=== PATIENT | male | born 1970 | race African-American/Black ===

== ENCOUNTER 2021-12-19 12:32 | Outpatient (RCR) | payer BC, SELFPAY ==
[2021-12-19 13:02] VITALS: BP 120/73; PULSE 101; RESP 16; TEMP 36.4; BMI 21.4
--- NOTE | 2021-12-19 13:19 | WC ---
PT WILL BRING MED LIST TO NEXT VISIT
--- NOTE | 2021-12-19 15:38 | PCM.WC.HP ---
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 He noticed a small mass in August while on vacation. It started to grow rapidly, especially after the biopsy by ENT at the end of September. He is currently receiving Chemotherapy. He has one more treatment after what he is currently receiving. He states he will then start radiation. He was referred to the wound center for drainage management. He and his state that the drainage has improved since starting the Chemo. They are currently not having any issues with bleeding. Patient states he has been eating well and his weight is stable. He states he will receive a feeding tube before he starts radiation therapy. Today he denies fever, chills, nausea or vomiting. His is a good support system. Progress of Wound: Right base neck mass that is dry with dry necrotic tissue. There are several areas of pink tissue that currently dry and not draining or bleeding. There is moisture around the base of the mass. [facility] Medical History Anxiety Migraine Osteoarthritis Primary cancer of supraglottis Seasonal allergies Sleep apnea Home Medications cetirizine 10 mg tablet 10 mg PO DAILY PRN 11/16/21 [History Last Taken Unknown] morphine 15 mg tablet,extended release tablet PO 12/08/21 [History Last Taken Unknown] Allergy/AdvReac Type Severity Reaction Status Date / Time No Known Allergies Allergy Verified 12/19/21 13:19 Family History Aunt Cancer unknown type Surgical History Hx of knee surgery Social History household members: spouse and children number of children: 2 current occupational status: employed Smoking Status: Current every day smoker tobacco type: cigars alcohol intake: current Alcohol type: beer ROS Constitutional Constitutional: Reports systems reviewed and no addt'l complaints, except as documented, fatigue and malaise; Denies chills or fever(s) Eyes Eyes: Reports requires corrective lenses ENT HEENT: Reports as per HPI, sore throat and other Details: swallowing without difficulty, able to eat without issues. ; Denies throat swelling Cardiovascular Cardiovascular: Reports fatigue; Denies chest pain or dyspnea Respiratory/Chest Respiratory/Chest: Denies cough or dyspnea Gastrointestinal Gastrointestinal: Denies chewing difficulty, dysphagia, nausea or vomiting Musculoskeletal Musculoskeletal: Reports none Integumentary Integumentary: Reports as per HPI Neurologic Neurologic: Reports systems reviewed and no addt'l complaints, except as documented Psychiatric Psychiatric: Reports anxiety Endocrine Endocrinology: Reports none Vital Signs Vital Signs Vital Signs: 12/19/21 13:02 Temperature 97.6 F L Temperature Source Temporal Pulse Rate 101 H Respiratory Rate 16 Blood Pressure 120/73 Blood Pressure Mean 88 Blood Pressure Source Monitor Blood Pressure Position Sitting Blood Pressure Location Left Arm Oxygen Delivery Method Room Air Weight Weight: 158 lb Body Mass Index (BMI) 21.4 Physical Exam Const alert, oriented x3 and average body habitus General Appearance: cooperative HEENT normocephalic Eyes PERRL Neck Neck Narrative: Right neck base mass with thick, necrotic tissue but several areas of soft, pink tissue. Drainage coming from the base of the mass. Area is extremely tender to light palpation. Resp normal respiratory effort and normal air movement Auscultation: clear to auscultation bilaterally Cardio regular rate and regular rhythm GI soft to palpation and non-tender Extremity full ROM and normal capillary refill Skin Skin Narrative: see HEENT for right neck mass description Neuro oriented x3 Psych mental status grossly normal, thought process normal and cooperative Debridement Note Debridement Note Wound debrided: neck mass Laterality: Right Type of Debridement: Selective debridement Anesthesia Used: 4% Lidocaine Solution Percentage of wound debrided: 80 Instrument Used: 5mm curette Tissue Removed: Devitalized tissue and slough Amount of bleeding with debridement: None Patient tolerated procedure: Patient tolerated procedure well Debridement Free Text: Selective debridement to clean around the edges and remove loose, sloughing tissue, 80% of mass gently debrided. No aggressive debridement performed because of pain and not wanting to have the mass start bleeding. Post-Debridement Measurements and Additional Note: Post-Debridement Measurements/Treatment - Nurse 1 - General Ulcer Assessment Start: 12/19/21 13:00 Freq: Status: Active Protocol: BRIT Activity Type Activity Date Activity User E-sign Co-sign Detail Recorded Client Recorded Date Recorded By Document 12/19/21 13:02 [facility] [id number] 12/19/21 13:15 [facility] 12/19/21 13:02 - Today's Visit Information Type of service Initial Visit Arrival Mode Ambulatory Transfer Assistance None Accompanied by Patient Identification Verified (Name & Yes ) Patient Requires Transmission-Based No Precautions Height and Weight Height 6 ft Weight 158 lb Weight in Pounds 158.0 lbs Body Mass Index (BMI) 21.4 BMI Classification Normal BSA - Ned 1.93 Vital Signs Temperature (97.8 F-99.1 F) 97.6 F L Temperature Source Temporal Pulse Rate (60-100) 101 H Pulse Location Monitor Respiratory Rate (12-18) 16 Respiratory rate source Observation Oxygen Delivery Method Room Air Blood Pressure (90/60-120/80) 120/73 Blood Pressure Mean 88 Source Monitor Position Sitting Blood Pressure Location Left Arm History Since Last Visit- (Skip if this is Patient's initial visit) Left Footwear Regular Shoe Right Footwear Regular Shoe Pain Scale: 0-10 Numeric Is Patient Pain Free? Yes Communication Assessment Preferred language South African Applications Programmer Analyst Required No Able to Read Yes Able to Write Yes Communication Tools None Right Hearing Abillity Normal Left Hearing Abillity Normal Visual Assistive Devices Glasses Teaching Assessment Preferences Verbal,Written, Audio/Visual, Demonstration Barriers to Learning None Readiness To Learn Excellent Willingness to Engage in Self Management High Activies Readiness to Engage in Self Management High Activities Anxiety Level Calm Cooperation Cooperative Perception Coherent Interest in Health Problem Asks Questions Education Importance Acknowledges Need Does Patient Smoke tobacco or other No substances Smoking Status Current every day smoker Is Patient Diabetic No Functional Assessment Recent Decline in Ability to Perform Denies Any Declines Culture/Mormonism/Planner Intern Cultural/Mormonism Needs that may affect No Treatment Plan Teaching: Wound Center *Welcome to the Wound Center -Person Taught Patient,Family -Teaching Method Discussion -Response to teaching Verbalize understanding Welcome to the Wound Care Center South African - Nurse 1 - General Ulcer Measurement Start: 12/19/21 13:00 Freq: Status: Active Protocol: Activity Type Activity Date Activity User E-sign Co-sign Detail Recorded Client Recorded Date Recorded By Document 12/19/21 13:02 [facility] [id number] 12/19/21 13:15 [facility] 12/19/21 13:02 Wound Center Nurse 1 #1- R NECK TUMOR -Combined with other wound No -Current Size (cm) - Length 7.7 -Current Size (cm) - Width 9.8 -Current Size (cm) - Depth 0.1 -Total Square Cm 75.46 -Date of Last Picture (Recall this 12/19/21 field) -Photo Taken Yes -Epithelialization None Present -Tunneling No -Undermining/Tunneling No -Circular Undermining No -Exudate Amt Small -Exudate Type Serosanguineous -Wound Margin Distinct, Outline Attached -Granulation Amt None Present (0 %) -Slough/Fibrin Yes -Necrosis Amt Large (67-100%) -Necrotic Tissue Type Eschar -Texture (Chery-wound Skin Appearance) Assessed, Scarring -Moisture (Chery-wound Skin Appearance) Assessed,Dry/ Scaly -Color (Chery-wound Skin Appearance) Assessed -Temperature (Chery-wound Skin No Abnormality Appearance) (Pt Warm) -Tenderness on Palpation (Chery-wound No Skin Appearance) -Ulcer Cleansing Soap and Water -Foul Odor after Cleansing No -Anesthetic Used 4% Lidocaine Solution - Nurse 2 - General Ulcer CM Notes Start: 12/19/21 13:00 Freq: Status: Active Protocol: Activity Type Activity Date Activity User E-sign Co-sign Detail Recorded Client Recorded Date Recorded By Document 12/19/21 13:36 [id number] 12/19/21 13:43 12/19/21 13:36 Wound Center Nurse 2 -Time 13:40 -Correct Patient Yes -Correct Side, Site, Position Yes -Correct Procedure Yes -Procedure Performed Yes -Type of Procedure Debridement -Clinical Debridement Epidermis / Dermis -Tissue Removed Epidermis, Dermis -Post Debridement (cm) - Length 9 -Post Debridement (cm) - Width 11 -Post Debridement (cm) - Depth 0.1 -Total Square (Post) (cm) 99 -Area of Debridement (cm) - Length 9 -Area of Debridement (cm) - Width 11 -Total Square (Area) (cm) 99 -Tunneling No -Undermining/Tunneling No -Circular Undermining No -Wound/Ulcer Outcome Not Healed -Ulcer Cleansing Rinsed/ Irrigated with Saline -Foul Odor after Cleansing No -Bioengineered Tissue No -Bleeding Controlled with Pressure -Treatment Response Procedure Tolerated Well -Offloading No -Debridement - Open, 1st 20sq cm Yes -Debridement, Open, ea addt'l 20sq cm 4 or part thereof Pain Scale: 0-10 Numeric Is Patient Pain Free? Yes WC - Nurse 3 - General Ulcer D/C NN Start: 12/19/21 13:00 Freq: Status: Active Protocol: Activity Type Activity Date Activity User E-sign Co-sign Detail Recorded Client Recorded Date Recorded By Document 12/19/21 13:58 DL [id number] 12/19/21 13:59 DL 12/19/21 13:58 Wound Care Nurse 3 #1- R NECK TUMOR -Foul Odor after Cleansing No -Primary Dressing Applied Mepilex Border -Mepilex Border 1 Treatment Response Procedure Tolerated Well Pain Scale: 0-10 Numeric Is Patient Pain Free? Yes - Visit Discharge Discharge Condition Stable Ambulatory Status Ambulatory Transportation Private Auto Charges/Coding Addendum Addendum: Selective debridement 33986 and 28287 x 4 Visit Charges Office Visits / Consults: 37022 OV L3 Est (25 modifer) Assessment/Plan Assessment/Plan (1) Primary cancer of supraglottis: CODE(S): C32.1 - Malignant neoplasm of supraglottis (2) Mass of right side of neck: CODE(S): R22.1 - Localized swelling, mass and lump, neck PLAN: Plan Patient evaluated at the wound center. A gentle, selective debridement was performed. Drainage control and comfort are our primary goals. Will order [place] SAP dressing to be changed daily or every other day if drainage decreases. May wash the area with soap and water and dry well, especially around the edges/creases at the time of the dressing change. He is currently receiving Chemo. Encouraged good nutrition, with increased protein intake. Follow up 3 weeks. Call or come in sooner if have any concerns.
== END 2021-12-20 23:59 | disposition home or self-care (01) ==
LOC: WC 12:32
PROVIDERS: Visit Provider Nurse Practitioner Family
DX: C32.1 Malignant neoplasm of supraglottis (principal); R22.1 Localized swelling, mass and lump, neck; F17.290 Nicotine dependence, other tobacco product, uncomplicated; G47.30 Sleep apnea, unspecified; M19.90 Unspecified osteoarthritis, unspecified site
CPT/HCPCS: 97597; 97598; 99213; G0463

== ENCOUNTER 2022-01-01 12:23 | Day surgery (SDC) | payer BC, MEDICAID, SELFPAY ==
--- NOTE | 2021-12-28 12:18 | SUR.PREOP ---
nutrition therapy called and they will see pt on saturday when he comes in after the procedure is done. the pt's will be with him .
[2022-01-01] VITALS (7 sets, daily range): BP systolic 97–109; BP diastolic 62–72; PULSE 87–94; RESP 16; TEMP 36.6–37.4; O2SAT 100; BMI 20.6
--- NOTE | 2022-01-01 13:09 | PCM.HP.BLA ---
History and Physical Date of Admission: 01/01/22 Date of Service:? 12/08/21 MR#: [id number] Acct: [id number] Name:CHRISTOPHE MARTÍNEZ Rep #: [id number] : 1970 Provider: Dr. Gracy Lowry MD Age/Sex:? 51/M ? Location: [facility] Status: Signed Intake Vital Signs ? 12/08/2209:06 Height 6 ft Weight: 160 lb 4 oz BMI 21.7 BP 135/77 H Blood Pressure Location Rt brachial Position Sitting Respiration 18 Pulse 108 H Pulse Source NIBP Temp 97.8 F Temp Source Temporal Pulse Oximetry (%) 96 Oxygen Delivery Method room air Intake Visit Reasons:?PEG PLACEMENT Chief Complaint: discuss PEG Senior Rd Engineer Required: No Is patient in pain?: No Allergies No Known Allergies Allergy (Verified 12/08/21 09:53) Medications cetirizine 10 mg tablet 10 mg PO DAILY PRN 11/16/21 [History Confirmed 12/08/21] morphine 15 mg tablet,extended release tablet PO 12/08/21 [History Confirmed 12/08/21] PFSH Medical History?(Updated 12/08/21 @ 10:[address] Gracy Lowry MD) Anxiety Migraine Osteoarthritis Seasonal allergies Sleep apnea Surgical History? Hx of knee surgery Family History? Aunt?? Cancer ?? ? unknown type Social History?(Updated 11/17/21 @ 09:01 by Manda Argueta) household members:? spouse and children number of children:? 2 current occupational status:? employed Smoking Status:? Current some day smoker tobacco type: cigars alcohol intake:? current Alcohol type: beer HPI HPI HPI: CHRISTOPHE GARZA, is a 51 M who presents to the office today for session of PEG placement.? Patient's currently on chemotherapy for his primary cancer of the supra epiglottis.? 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 Schwarz's office he was in the 160s as well.? Patient states that when he gets weighed in [place] it has been like 130 or 140s-seems like scale is not correct.? Patient states he is able to eat and swallow without difficulty and has a normal appetite currently.? Patient referred not to get a PEG tube unless he needs it. ROS General General: Yes fatigue HEENT HEENT: Yes swollen glands; No difficulty swallowing Skin Skin: No rash or changing moles Cardio Cardiovascular: No chest pain Psych Psychiatric: Yes anxiety; No depression Resp Respiratory: No shortness of breath, Yes sleep apnea, No cough, No COPD, No asthma, No emphysema and No wheezing Gastro Gastrointestinal: No abdominal pain, No nausea or vomiting, Yes diarrhea, Yes constipation, No blood in stool, Yes acid reflux, No hemorrhoids, No ulcers, No gallbladder problem and No black,tarry stools Neuro Neurologic: No numbness and No tingling Exam Const General: cooperative, healthy appearing and no acute distress HENMT Head: normal to inspection Neck Other: Large right neck mass dressed Resp Effort & Inspection: normal respiratory effort Cardio Rate: regular rate GI Inspection: non-distended Palpation: soft, no guarding and nontender Skin General: no rashes or lesions noted Neuro General: patient oriented x3 Extrem General: no clubbing, cyanosis or edema Psych Affect: normal affect Assessment and Plan Assessment and Plan (1) Primary cancer of supraglottis: ?Status:?Acute (2) Malnutrition: ?Status:?Acute Plan Did discuss with patient that typically once she start radiation a PEG is necessary for a small amount of time to keep adequate nutrition as it can be very sore/painful to swallow.? Patient was agreeable to have the PEG placed.? Patient would prefer to to wait to the closer to when radiation would start.? Discussed doing it after his next cycle of chemotherapy 2 weeks after his dose the week of January 01.? Patient was agreeable with plan.? Patient does have some dental work that needs to be done prior to starting any radiation. I have discussed the above with the patient. I have offered the patient esophagogastroduodenoscopy with placement of percutaneous gastrostomy tube. I have explained the risks/benefits of the procedure and described the procedure.? I have discussed the risks with the patient, including but not limited to:? infection, bleeding, perforation of the GI tract requiring emergency surgery, inability to complete the procedure, injury to any internal organs, complications of anesthesia, etc. - the patient understands and agrees to proceed. I have answered all the patient's questions to the patient's satisfaction and the patient has no further questions. Gracy Lowry M.D. Pager: [phone] [facility] [address] [place] [address], [address] [place] [address] Office: [phone] Coding Level of Care Code Off vis,new,level 3 Diagnoses Primary cancer of supraglottis? C32.1 Malnutrition? E46 12/08/21 1033 <Electronically signed by Gracy Lowry MD> Date Gracy Lowry MD
[2022-01-01] MEDS: Lactated Ringers 1,000 ML 15 ML IV (13:10)
--- NOTE | 2022-01-01 13:30 | IMM_PTH ---
PATIENT: CHRISTOPHE GARZA LOC: [facility] U#:[id number] AGE/SX: 51/M ROOM: RE01/01/[address]: Dr. Gracy Lowry MD : 1970 BED: DIS: 01/01/2022 SPEC #: [id number] RECD: 01/02/22 09:42 STATUS: BELKIS REBernadette #: [id number] ENA: 01/01/22 13:[address]: Gracy Lowry DEPT: IMMUNOHISTOCHEMISTRY RECD BY: Alina Haskins ENTERED: 01/02/22 09:43 SP TYPE: IMMUNO OT DR: Tara Primary Care Phys Tissues: Stomach, NOS Procedures: H Pylori (initial) PHYSICIAN & INSTITUTION [place] [id number] SPECIMEN INFORMATION: Tissue Source: Antrum biopsy Clinical Info: Cancer of supraglottis, malnutrition Specimen Number: [id number] CPT code: 69208 METHODOLOGY: Deparaffinized sections of prefer/formalin-fixed tissue or PAP/DQ stained slides are incubated with monoclonal/polyclonal antibodies/oligonucleotide probes. Localization is made via biotin free immunoperoxidase method. Appropriate controls are performed and reacted as expected. Results on target cell population are indicated in the following table: RESULTS: ANTIBODY / CLONE RESULT H Pylori (polyclonal) negative These tests were developed and their performance characteristics determined by [facility]. They may not have been cleared or approved by the U.S. Food and Drug Administration. The FDA has determined that such clearance or approval is not necessary. The above immunohistochemical/dualISH markers are ordered and reviewed by the Pathologist. INTERPRETATION: Antrum, biopsy: Negative for Helicobacter pylori organisms. SJ:ange 01/03/2022
--- NOTE | 2022-01-01 13:30 | EGD_PTH ---
PATIENT: CHRISTOPHE GARZA LOC: [facility] U#:[id number] AGE/SX: 51/M ROOM: RE01/01/[address]: Dr. Gracy Lowry MD : 1970 BED: DIS: 01/01/2022 SPEC #: [id number] RECD: 01/01/22 14:27 STATUS: BELKIS THONY #: [id number] ENA: 01/01/22 13:[address]: Gracy Lowry DEPT: SURGICAL PATHOLOGY RECD BY: Fatou Dangelo ENTERED: 01/02/22 07:46 SP TYPE: EGD BIOPSY OT DR: No Primary Care Phys Tissues: Gastric mucous membrane Procedures: Surgery Specimen Level IV HEADER OPERATION: E[place] ([facility]) with PEG tube placement PRE-OP DIAGNOSIS: Cancer of supraglottis, malnutrition TISSUE SUBMITTED: Antrum biopsy for histo and H. pylori MICROSCOPIC DIAGNOSIS Antrum, biopsy: Mild gastritis. See microscopic description and comment. SJ:ange 01/03/2022 COMMENT The results of immunohistochemistry for Helicobacter pylori will be reported separately ([id number]). MICROSCOPIC DESCRIPTION Slides are reviewed. The specimen shows fragments of gastric mucosa with chronic inflammatory cell infiltrates in the lamina propria consisting of lymphocytes and plasma cells, consistent with mild chronic gastritis. GROSS DESCRIPTION Received in fixative is one container labeled with the patient's name and designated antrum biopsy. The specimen consists of one irregular fragment of light tapia soft tissue that measures 0.3 x 0.3 x 0.1 cm. The specimen is totally submitted in one cassette. / MELQUIADES:ange 01/02/2022 TC:3 CPT: 05077
[2022-01-01] MEDS: Cefazolin 2 GM in 0.9% Normal Saline 100 ML IV (13:52)
--- NOTE | 2022-01-01 14:19 | OP.EGD_ITS ---
Patient Name: Troy Grullon Procedure Date: 01/01/2022 1:35 PM Date of : 1970 Age: 51 Procedure: Upper GI endoscopy Indications: Place PEG-J due to feeding difficulties secondary to oropharyngeal tumor Providers: Gracy Lowry MD Referring MD: Gracy Lowry MD Medicines: Monitored Anesthesia Care Patient Profile: This is a 51 year old male. Complications: No immediate complications. Procedure: Pre-Anesthesia Assessment: - Prior to the procedure, a History and Physical was performed, and patient medications and allergies were reviewed. The patient's tolerance of previous anesthesia was also reviewed. The risks and benefits of the procedure and the sedation options and risks were discussed with the patient. All questions were answered, and informed consent was obtained. Prior Anticoagulants: The patient has taken no previous anticoagulant or antiplatelet agents. ASA Grade Assessment: Per anesthesia. After reviewing the risks and benefits, the patient was deemed in satisfactory condition to undergo the procedure. After obtaining informed consent, the endoscope was passed under direct vision. Throughout the procedure, the patient's blood pressure, pulse, and oxygen saturations were monitored continuously. The Endoscope was introduced through the mouth, and advanced to the second part of duodenum. The upper GI endoscopy was accomplished without difficulty. The patient tolerated the procedure well. Scope In: 1:56:46 PM Scope Out: 2:10:10 PM Total Procedure Duration Time 0 hours 13 minutes 24 seconds Findings: The Z-line was variable and was found 40 cm from the incisors. The examined duodenum was normal. Mildly erythematous mucosa without bleeding was found in the gastric antrum. Biopsies were taken with a cold forceps for histology. Biopsies were taken with a cold forceps for Helicobacter pylori cultures. The cardia and gastric fundus were normal on retroflexion. The patient was placed in the supine position for PEG placement. The stomach was insufflated to appose gastric and abdominal duffy. A site was located in the body of the stomach with excellent transillumination for placement. The abdominal wall was marked and prepped in a sterile manner. The area was anesthetized with 5 mL of 1% lidocaine. The trocar needle was introduced through the abdominal wall and into the stomach under direct endoscopic view. A snare was introduced through the endoscope and opened in the gastric lumen. The guide wire was passed through the trocar and into the open snare. The snare was closed around the guide wire. The endoscope and snare were removed, pulling the wire out through the mouth. A skin incision was made at the site of needle insertion. The externally removable 20 Fr EndoVive Safety gastrostomy tube was lubricated. The G-tube was tied to the guide wire and pulled through the mouth and into the stomach. The trocar needle was removed, and the gastrostomy tube was pulled out from the stomach through the skin. The external bumper was attached to the gastrostomy tube, and the tube was cut to remove the guide wire. The final position of the gastrostomy tube was confirmed by relook endoscopy, and skin marking noted to be 3.5 cm at the external bumper. The final tension and compression of the abdominal wall by the PEG tube and external bumper were checked and revealed that the bumper was loose and lightly touching the skin. The feeding tube was capped, and the tube site cleaned and dressed. Impression: - Z-line variable, 40 cm from the incisors. - Normal examined duodenum. - Erythematous mucosa in the antrum. Biopsied. - An externally removable PEG placement was successfully completed. Recommendation: - Discharge patient to home. - Resume previous diet. - Continue present medications. - Please follow the post-PEG recommendations including: change dressing once per day, flush PEG daily with 60 ml water and clean site with soap and water daily and dry thoroughly. Procedure Code(s): --- Professional --- 12774, PT, Esophagogastroduodenoscopy, flexible, transoral; with directed placement of percutaneous gastrostomy tube 15195, Esophagogastroduodenoscopy, flexible, transoral; with biopsy, single or multiple Diagnosis Code(s): --- Professional --- K22.8, Other specified diseases of esophagus K31.89, Other diseases of stomach and duodenum D37.05, Neoplasm of uncertain behavior of pharynx R63.3, Feeding difficulties Z43.1, Encounter for attention to gastrostomy CPT copyright 2017 [employer]. All rights reserved. The codes documented in this report are preliminary and upon paving bed maker review may be revised to meet current compliance requirements. MD Gracy Davis MD 01/01/2022 2:18:56 PM This report has been signed electronically. Number of Addenda: 0 Note Initiated On: 01/01/2022 1:35 PM
--- NOTE | 2022-01-01 14:20 | OP.CCLET_ITS ---
01/01/2022 No Primary Care Physician Re : Upper GI endoscopy procedure for Troy Grullon Dear Care Physician This procedure was performed on Saturday, January 01, 2022. My impressions and recommendations are as follows: Impressions : - Z-line variable, 40 cm from the incisors. - Normal examined duodenum. - Erythematous mucosa in the antrum. Biopsied. - An externally removable PEG placement was successfully completed. Recommendations : - Discharge patient to home. - Resume previous diet. - Continue present medications. - Please follow the post-PEG recommendations including: change dressing once per day, flush PEG daily with 60 ml water and clean site with soap and water daily and dry thoroughly. My findings are described in the full procedure note, which is enclosed. If I can be of further assistance, please feel free to contact me at Doctor phone number(s): , Work: . Sincerely, MD Gracy Davis MD 01/01/2022 2:18:56 PM This report has been signed electronically.
== END 2022-01-01 15:18 | disposition home or self-care (01) ==
LOC: EN 12:27 → AC 12:28
PROVIDERS: Referring Provider Surgery; Visit Provider Surgery
PROC: 0DJ08ZZ Inspection of Upper Intestinal Tract, Via Natural or Artificial Opening Endoscopic (ICD-10-PCS; CPT 43235; principal; 2022-01-01 13:25)
DX: K31.89 Other diseases of stomach and duodenum (principal); Z43.1 Encounter for attention to gastrostomy; C32.1 Malignant neoplasm of supraglottis; K22.89 Other specified disease of esophagus; K29.50 Unspecified chronic gastritis without bleeding; R63.30 Feeding difficulties, unspecified; G47.30 Sleep apnea, unspecified; K21.9 Gastro-esophageal reflux disease without esophagitis; Z79.899 Other long term (current) drug therapy
CPT/HCPCS: 43246; 43239; 88305; 88342; 97802; J7120; A4216; J2405

== ENCOUNTER 2022-01-09 13:05 | Outpatient (RCR) | payer BC, MEDICAID, SELFPAY ==
[2021-12-21 00:43] VITALS: BP 120/73; PULSE 101; RESP 16; TEMP 36.4; BMI 21.4
[2022-01-09 13:14] VITALS: BP 108/68; PULSE 112; RESP 20; TEMP 36.1; BMI 21.4
--- NOTE | 2022-01-09 15:03 | PN.PCM_ITS ---
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 He noticed a small mass in August while on vacation. It started to grow rapidly, especially after the biopsy by ENT at the end of September. He is currently receiving Chemotherapy. He has one more treatment after what he is currently receiving. He states he will then start radiation. He was referred to the wound center for drainage management. He and his state that the drainage has improved since starting the Chemo. They are currently not having any issues with bleeding. Wound care - Dry gauze placed on distal portion of ulcer to collect drainage. Gauze placed over the ulcer for protection. Patient states he has been eating well and his weight is stable. He states he will receive a feeding tube before he starts radiation therapy. Today he denies fever, chills, nausea or vomiting. His is a good support system. Progress of Wound: Right neck ulcer/capsule is loose, it is attached only by the posterior 1/3 of the capsule. It is very mobile. There is no bleeding or odor from this area. Objective Data Objective Data Vital Signs: Vital Signs Temp Pulse Resp BP 96.9 F L 112 H 20 H 108/68 01/09/22 13:14 01/09/22 13:14 01/09/22 13:14 01/09/22 13:14 Weight: 158 lb Body Mass Index (BMI) 21.4 Charges/Coding Visit Charges Office Visits / Consults: 86849 OV L3 Est Physical Exam Const alert, oriented x3 and average body habitus General Appearance: cooperative HEENT normocephalic Eyes PERRL Neck Neck Narrative: Right neck base mass with thick, necrotic capsule that is starting to detach. It remains attached on the posterior 1/3 of the capsule. From what can be visualized from the area of separation the base of the tumor is white, there is minimal drainage. No odor is present today. Resp normal respiratory effort and normal air movement Auscultation: clear to auscultation bilaterally Cardio regular rate and regular rhythm GI soft to palpation and non-tender Extremity full ROM and normal capillary refill Skin Skin Narrative: see HEENT for right neck mass description Neuro oriented x3 Psych mental status grossly normal, thought process normal and cooperative Debridement Note Debridement Note No debridement was completed: No debridement was completed today Post-Debridement Measurements and Additional Note: Post-Debridement Measurements/Treatment - Nurse 1 - General Ulcer Assessment Start: 01/09/22 13:14 Freq: Status: Active Protocol: BRIT Activity Type Activity Date Activity User E-sign Co-sign Detail Recorded Client Recorded Date Recorded By Document 01/09/22 13:14 DL [id number] 01/09/22 13:19 DL 01/09/22 13:14 WC - Today's Visit Information Type of service 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 ) Arrival Mode Ambulatory Transfer Assistance None Patient Identification Verified (Name & Yes ) Patient Requires Transmission-Based No Precautions Height and Weight Body Mass Index (BMI) 21.4 BMI Classification Normal Vital Signs Temperature (97.8 F-99.1 F) 96.9 F L Temperature Source Temporal Pulse Rate (60-100) 112 H Pulse Location Monitor Respiratory Rate (12-18) 20 H Respiratory rate source Observation Blood Pressure (90/60-120/80) 108/68 Blood Pressure Mean (mm Hg) 81 Source Monitor History Since Last Visit- (Skip if this is Patient's initial visit) Have you changed medications since your No last visit? Any new allergies or adverse reactions No Had a fall/change in ADL's that may No increase risk of falls Signs or symptoms of abuse and/or No neglect since last visit Have you been in the hospital since your No last visit? Has dressing in place as prescribed Yes Has compression in place as prescribed N/A Has offloadiing in place as prescribed N/A Experienced any changes in pain level or No management Pain Scale: 0-10 Numeric Is Patient Pain Free? Yes - Nurse 1 - General Ulcer Measurement Start: 01/09/22 13:14 Freq: Status: Active Protocol: Activity Type Activity Date Activity User E-sign Co-sign Detail Recorded Client Recorded Date Recorded By Document 01/09/22 13:14 DL [id number] 01/09/22 13:19 DL 01/09/22 13:14 Wound Center Nurse 1 #1- R NECK TUMOR -Current Size (cm) - Length 7 -Current Size (cm) - Width 6 -Current Size (cm) - Depth 0.1 -Total Square Cm 42 -Photo Taken No -Exudate Amt Small -Exudate Type Serosanguineous -Wound Margin Distinct, Outline Attached -Granulation Amt None Present (0 %) -Necrosis Amt None Present (0 %) -Structure Exposed N/A -Texture (Chery-wound Skin Appearance) Scarring -Moisture (Chery-wound Skin Appearance) Dry/Scaly -Color (Chery-wound Skin Appearance) No Abnormality -Temperature (Chery-wound Skin No Abnormality Appearance) (Pt Warm) -Tenderness on Palpation (Chery-wound No Skin Appearance) -Ulcer Cleansing Rinsed/ Irrigated with Saline -Foul Odor after Cleansing No WC - Nurse 2 - General Ulcer CM Notes Start: 01/09/22 13:14 Freq: Status: Active Protocol: Activity Type Activity Date Activity User E-sign Co-sign Detail Recorded Client Recorded Date Recorded By Document 01/09/22 13:28 [id number] 01/09/22 13:32 01/09/22 13:28 Wound Center Nurse 2 -Correct Patient No -Correct Side, Site, Position No -Correct Procedure No -Procedure Performed No -Wound/Ulcer Outcome Not Healed Pain Scale: 0-10 Numeric Is Patient Pain Free? Yes WC - Nurse 3 - General Ulcer D/C NN Start: 01/09/22 13:14 Freq: Status: Active Protocol: Activity Type Activity Date Activity User E-sign Co-sign Detail Recorded Client Recorded Date Recorded By Document 01/09/22 13:40 JF [id number] 01/09/22 13:40 01/09/22 13:40 Wound Care Nurse 3 #1- R NECK TUMOR -Ulcer Cleansing Rinsed/ Irrigated with Saline -Foul Odor after Cleansing No -Primary Dressing Covered/Secured with Dry Gauze, Secured with Tape Pain Scale: 0-10 Numeric Is Patient Pain Free? Yes WC - Visit Discharge Discharge Condition Stable Ambulatory Status Ambulatory Transportation Private Auto Accompanied by Medication Reconcilliation completed & Yes provided to patient/care provider Clinical Summary of Care Provided Yes Assessment/Plan Assessment/Plan (1) Primary cancer of supraglottis: CODE(S): C32.1 - Malignant neoplasm of supraglottis (2) Mass of right side of neck: CODE(S): R22.1 - Localized swelling, mass and lump, neck PLAN: Plan Patient evaluated at the wound center. No debridement was performed. Drainage control and comfort are our primary goals. The [place] SAP dressings never were delivered to the patient. They will place gauze dressing on the distal edge of the ulcer to collect any drainage. They are covering with gauze and silicone tape to help stabilize the capsule. May wash the area with soap and water and dry well, especially around the edges/creases at the time of the dressing change. He is currently receiving Chemo. He receives 5 days of chemo every 21 days. Encouraged good nutrition, with increased protein intake. If the hard capsule comes off sooner than 3 weeks, come in sooner to discuss wound care options. Encouraged patient to discuss with his surgeon to see if they can remove the remainder of the hard capsule to prevent it from pulling. Discussed that if he starts to experience any bleeding he needs to hold pressure and if the bleeding doesn't stop, he is to continue to hold pressure and call 911 to be transferred to the nearest ED. Both he and his verbalized understanding. Follow up 3 weeks. Call or come in sooner if have any concerns.
== END 2022-01-19 23:59 | disposition home or self-care (01) ==
LOC: WC 13:05
PROVIDERS: Visit Provider Nurse Practitioner Family
DX: C32.1 Malignant neoplasm of supraglottis (principal); R22.1 Localized swelling, mass and lump, neck
CPT/HCPCS: 99213; G0463

== ENCOUNTER 2022-01-17 10:26 | Outpatient (RCR) | payer BC, MEDICAID, SELFPAY | END 2022-01-19 23:59 | LOC: NS 10:26 | PROVIDERS: Visit Provider Student in an Organized Health Care Education/Training Program | DX: Z71.3 Dietary counseling and surveillance (principal); C32.1 Malignant neoplasm of supraglottis; Z93.1 Gastrostomy status | CPT/HCPCS: 97803; 99213; G0463 ==

== ENCOUNTER 2022-02-07 09:15 | Outpatient (RCR) | payer BC, MEDICAID, SELFPAY ==
[2022-01-20 01:35] VITALS: BP 108/68; PULSE 112; RESP 20; TEMP 36.1; BMI 21.4
--- NOTE | 2022-01-22 13:01 | PCM.WC.PN ---
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 He noticed a small mass in August while on vacation. It started to grow rapidly, especially after the biopsy by ENT at the end of September. He is currently receiving Chemotherapy. He has one more treatment after what he is currently receiving. He states he will then start radiation. He was referred to the wound center for drainage management. He and his state that the drainage has improved since starting the Chemo. They are currently not having any issues with bleeding. Wound care - Adaptic covered with [place] SAP dressing. Patient states he has been eating well and his weight is stable. He states he will receive a feeding tube before he starts radiation therapy. Today he denies fever, chills, nausea or vomiting. His is a good support system. Progress of Wound: Left neck ulcer cover was removed by ENT last week. Patient has been placing xeroform gauze over the exposed ulcer and covering with gauze since then. The ulcer has a white base, it is very painful, there is minimal drainage. Objective Data Objective Data Vital Signs: Vital Signs Temp Pulse Resp BP 96.9 F L 112 H 20 H 108/68 01/20/22 01:35 01/20/22 01:35 01/20/22 01:35 01/20/22 01:35 Weight: 158 lb Body Mass Index (BMI) 21.4 Charges/Coding Addendum Addendum: Selective debridement 44570 and 94519 x 1 Physical Exam Const alert and oriented x3 Constitutional Narrative: Patient is very uncomfortable today. He is pacing. General Appearance: cooperative HEENT normocephalic Neck Neck Narrative: Right neck ulcer is white. It has minimal drainage. It is painful. The hard outer shell of the mass was removed by ENT last week. Resp normal respiratory effort and normal air movement Cardio regular rate GI soft to palpation and non-tender Extremity full ROM and normal capillary refill Skin Skin Narrative: see HEENT for right neck mass description Neuro oriented x3 Psych mental status grossly normal, thought process normal and cooperative Debridement Note Debridement Note Wound debrided: neck ulcer Laterality: Right Type of Debridement: Selective debridement Anesthesia Used: 5% Lidocaine Gel Depth: in the subcutaneous layer Percentage of wound debrided: 100 Instrument Used: - (Moistened gauze and pickups) Tissue Removed: devitalized tissue and slough Severity: Limited To Skin Breakdown Amount of bleeding with debridement: Mild Bleeding Controlled with: Compression and gauze Patient tolerated procedure: Patient tolerated procedure well Debridement Free Text: Light selective debridement performed with moistened gauze. Also used pickups to remove multiple threads from the xeroform gauze. Goal of debridement is not get the tissue bleeding, just to keep area clean. Post-Debridement Measurements and Additional Note: Post-Debridement Measurements/Treatment WC - Nurse 2 - General Ulcer CM Notes Start: 01/22/22 11:28 Freq: Status: Active Protocol: Activity Type Activity Date Activity User E-sign Co-sign Detail Recorded Client Recorded Date Recorded By Document 01/22/22 11:28 DANIA [id number] 01/22/22 11:30 Edit Result 01/22/22 11:28 JF (1) [id number] 01/22/22 11:36 (1) #1- R NECK TUMOR - Time => 11:34 - Correct Patient No => Yes - Correct Side, Site, Position No => Yes - Correct Procedure No => Yes - Procedure Performed No => Yes - Type of Procedure => Debridement - Clinical Debridement => Epidermis / Dermis - Tissue Removed => Epidermis,Dermis - Post Debridement (cm) - Length => 5.2 - Post Debridement (cm) - Width => 5 - Post Debridement (cm) - Depth => 0.1 - Total Square (Post) (cm) => 26.0 - Area of Debridement (cm) - Length => 5.2 - Area of Debridement (cm) - Width => 5 - Total Square (Area) (cm) => 26.0 - Tunneling => No - Undermining/Tunneling => No - Circular Undermining => No - Ulcer Cleansing => Rinsed/Irrigated => with Saline - Foul Odor after Cleansing => No - Bioengineered Tissue => No - Bleeding Controlled with => Pressure - Treatment Response => Procedure => Tolerated Well - Offloading => No - Debridement - Open, 1st 20sq cm => Yes - Debridement, Open, ea addt'l 20sq cm => 1 or part thereof 01/22/22 11:28 Wound Center Nurse 2 #1- R NECK TUMOR -Time 11:34 -Correct Patient Yes -Correct Side, Site, Position Yes -Correct Procedure Yes -Procedure Performed Yes -Type of Procedure Debridement -Clinical Debridement Epidermis / Dermis -Tissue Removed Epidermis, Dermis -Post Debridement (cm) - Length 5.2 -Post Debridement (cm) - Width 5 -Post Debridement (cm) - Depth 0.1 -Total Square (Post) (cm) 26.0 -Area of Debridement (cm) - Length 5.2 -Area of Debridement (cm) - Width 5 -Total Square (Area) (cm) 26.0 -Tunneling No -Undermining/Tunneling No -Circular Undermining No -Wound/Ulcer Outcome Not Healed -Ulcer Cleansing Rinsed/ Irrigated with Saline -Foul Odor after Cleansing No -Bioengineered Tissue No -Bleeding Controlled with Pressure -Treatment Response Procedure Tolerated Well -Offloading No -Debridement - Open, 1st 20sq cm Yes -Debridement, Open, ea addt'l 20sq cm 1 or part thereof Pain Scale: 0-10 Numeric Is Patient Pain Free? Yes - Nurse 3 - General Ulcer D/C NN Start: 01/22/22 11:28 Freq: Status: Active Protocol: Activity Type Activity Date Activity User E-sign Co-sign Detail Recorded Client Recorded Date Recorded By Document 01/22/22 11:36 DANIA [id number] 01/22/22 11:37 DANIA 01/22/22 11:36 Wound Care Nurse 3 #1- R NECK TUMOR -Ulcer Cleansing Rinsed/ Irrigated with Saline -Foul Odor after Cleansing No -Primary Dressing Applied Mepilex Border, NonAdherent Contact Layer -Mepilex Border 1 Pain Scale: 0-10 Numeric Is Patient Pain Free? Yes WC - Visit Discharge Discharge Condition Stable Ambulatory Status Ambulatory Medication Reconcilliation completed & Yes provided to patient/care provider Clinical Summary of Care Provided Yes Assessment/Plan Assessment/Plan (1) Primary cancer of supraglottis: CODE(S): C32.1 - Malignant neoplasm of supraglottis (2) Mass of right side of neck: CODE(S): R22.1 - Localized swelling, mass and lump, neck PLAN: Plan Patient evaluated at the wound center. Light selective debridement was performed as documented. Drainage control and comfort are our primary goals. Wound care - Adaptic covered by [place] [employer] daily or every other day, after washing with soap and water. With the hard capsule now removed, it should make wound care easier. He is finishing up his chemo and will be starting radiation therapy soon. Encouraged good nutrition, with increased protein intake. Discussed that if he starts to experience any bleeding he needs to hold pressure and if the bleeding doesn't stop, he is to continue to hold pressure and call 911 to be transferred to the nearest ED. Both he and his verbalized understanding. Follow up 1-2weeks. Call or come in sooner if have any concerns.
[2022-02-07 09:29] VITALS: BP 113/68; PULSE 120; RESP 18; TEMP 36; BMI 21.4
--- NOTE | 2022-02-07 12:18 | PCM.WC.PN ---
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 He noticed a small mass in August while on vacation. It started to grow rapidly, especially after the biopsy by ENT at the end of September. He is currently receiving Chemotherapy. He has one more treatment after what he is currently receiving. He states he will then start radiation. He was referred to the wound center for drainage management. He and his state that the drainage has improved since starting the Chemo. They are currently not having any issues with bleeding. Wound care - Dakin's 0.25% moistened gauze covered with Milbridge SAP dressing. Patient states he has been eating well and his weight is stable. He states he will receive a feeding tube before he starts radiation therapy. Today he denies fever, chills, nausea or vomiting. His is a good support system. Progress of Wound: Dramatic change in right neck ulcer that it is smaller in diameter, but there is now depth to it. There is some clear drainage present. It continues to be very painful to palpation. Patient was hospitalized recently for severe back pain along with dehydration. Patient states he will be starting radiation soon. Objective Data Objective Data Vital Signs: Vital Signs Temp Pulse Resp BP 96.8 F L 120 H 18 113/68 02/07/22 09:29 02/07/22 09:29 02/07/22 09:29 02/07/22 09:29 Weight: 158 lb Body Mass Index (BMI) 21.4 Charges/Coding Wound Center CF Procedures [id number]: [id number] RMVL DEVITAL TIS 20 CM/< Multi Select Codes Wound Center CF Procedures [id number]: [id number] RMVL DEVITAL TIS 20 CM/< Physical Exam Const alert and oriented x3 Constitutional Narrative: Patient is very uncomfortable today. He is pacing. General Appearance: cooperative HEENT normocephalic Neck Neck Narrative: Resp normal respiratory effort and normal air movement Cardio regular rate GI soft to palpation and non-tender Extremity full ROM and normal capillary refill Skin Skin Narrative: Right neck ulcer has had a dramatic change in appearance. It is much smaller in diameter but there is now significant depth. There is clear drainage present. It continues to be very sensitive/painful to palpation. Neuro oriented x3 Psych mental status grossly normal, thought process normal and cooperative Debridement Note Debridement Note Wound debrided: neck ulcer Laterality: Right Type of Debridement: Selective debridement Anesthesia Used: 5% Lidocaine Gel Depth: in the subcutaneous layer Percentage of wound debrided: 100 Instrument Used: - (Moistened gauze and cotton swab applicators) Tissue Removed: devitalized tissue and slough Severity: Limited To Skin Breakdown Amount of bleeding with debridement: Mild Bleeding Controlled with: Compression and gauze Patient tolerated procedure: Patient tolerated procedure well Debridement Free Text: Light selective debridement performed with moistened gauze and cotton swab applicators to help remove the devitalized tissue surrounding the ulcer Post-Debridement Measurements and Additional Note: Post-Debridement Measurements/Treatment - Nurse 1 - General Ulcer Assessment Start: 01/22/22 11:28 Freq: Status: Active Protocol: BRIT Activity Type Activity Date Activity User E-sign Co-sign Detail Recorded Client Recorded Date Recorded By Document 02/07/22 09:29 [id number] 02/07/22 09:37 02/07/22 09:29 - Today's Visit Information Type of service Follow-up Visit (Physician/PHOTO INTERN ) Arrival Mode Ambulatory Transfer Assistance None Patient Identification Verified (Name & Yes ) Patient Requires Transmission-Based No Precautions Height and Weight Body Mass Index (BMI) 21.4 BMI Classification Normal Vital Signs Temperature (97.8 F-99.1 F) 96.8 F L Temperature Source Temporal Pulse Rate (60-100) 120 H Pulse Location Monitor Respiratory Rate (12-18) 18 Respiratory rate source Observation Blood Pressure (90/60-120/80) 113/68 Blood Pressure Mean (mm Hg) 83 Source Monitor Position Semi-Fowlers Blood Pressure Location Left Arm History Since Last Visit- (Skip if this is Patient's initial visit) Have you changed medications since your No last visit? Any new allergies or adverse reactions No Had a fall/change in ADL's that may No increase risk of falls Signs or symptoms of abuse and/or No neglect since last visit Have you been in the hospital since your No last visit? Has dressing in place as prescribed Yes Has compression in place as prescribed No Has offloadiing in place as prescribed No Experienced any changes in pain level or No management Pain Scale: 0-10 Numeric Is Patient Pain Free? Yes WC - Nurse 1 - General Ulcer Measurement Start: 01/22/22 11:28 Freq: Status: Active Protocol: Activity Type Activity Date Activity User E-sign Co-sign Detail Recorded Client Recorded Date Recorded By Document 02/07/22 09:29 RB [id number] 02/07/22 09:37 RB 02/07/22 09:29 Wound Center Nurse 1 #1- R NECK TUMOR -Combined with other wound No -Current Size (cm) - Length 2 -Current Size (cm) - Width 2 -Current Size (cm) - Depth 3.5 -Total Square Cm 4 -Date of Last Picture (Recall this 02/07/22 field) -Photo Taken Yes -Epithelialization Medium 34-66% -Tunneling No -Undermining/Tunneling No -Circular Undermining No -Exudate Amt Large -Exudate Type Serosanguineous -Wound Margin Distinct, Outline Attached -Granulation Amt Medium (34-66%) -Granulation Quality [place] -Slough/Fibrin Yes -Necrosis Amt Medium (34-66%) -Necrotic Tissue Type Adherent Slough -Texture (Chery-wound Skin Appearance) Assessed, Scarring -Moisture (Cehry-wound Skin Appearance) Assessed,Dry/ Scaly -Color (Chery-wound Skin Appearance) Assessed -Temperature (Chery-wound Skin No Abnormality Appearance) (Pt Warm) -Tenderness on Palpation (Chery-wound No Skin Appearance) -Ulcer Cleansing Soap and Water -Foul Odor after Cleansing No WC - Nurse 2 - General Ulcer CM Notes Start: 01/22/22 11:28 Freq: Status: Active Protocol: Activity Type Activity Date Activity User E-sign Co-sign Detail Recorded Client Recorded Date Recorded By Document 01/22/22 11:28 DANIA [id number] 01/22/22 11:30 Edit Result 01/22/22 11:28 JF (1) [id number] 01/22/22 11:36 JF Document 02/07/22 09:45 [id number] 02/07/22 09:54 JF (1) #1- R NECK TUMOR - Time => 11:34 - Correct Patient No => Yes - Correct Side, Site, Position No => Yes - Correct Procedure No => Yes - Procedure Performed No => Yes - Type of Procedure => Debridement - Clinical Debridement => Epidermis / Dermis - Tissue Removed => Epidermis,Dermis - Post Debridement (cm) - Length => 5.2 - Post Debridement (cm) - Width => 5 - Post Debridement (cm) - Depth => 0.1 - Total Square (Post) (cm) => 26.0 - Area of Debridement (cm) - Length => 5.2 - Area of Debridement (cm) - Width => 5 - Total Square (Area) (cm) => 26.0 - Tunneling => No - Undermining/Tunneling => No - Circular Undermining => No - Ulcer Cleansing => Rinsed/Irrigated => with Saline - Foul Odor after Cleansing => No - Bioengineered Tissue => No - Bleeding Controlled with => Pressure - Treatment Response => Procedure => Tolerated Well - Offloading => No - Debridement - Open, 1st 20sq cm => Yes - Debridement, Open, ea addt'l 20sq cm => 1 or part thereof 01/22/22 02/07/22 11:28 09:45 Wound Center Nurse 2 #1- R NECK TUMOR -Time 11:34 09:48 -Correct Patient Yes Yes -Correct Side, Site, Position Yes Yes -Correct Procedure Yes Yes -Procedure Performed Yes Yes -Type of Procedure Debridement Debridement -Clinical Debridement Epidermis / Epidermis / Dermis Dermis -Tissue Removed Epidermis, Epidermis, Dermis Dermis -Post Debridement (cm) - Length 5.2 2.2 -Post Debridement (cm) - Width 5 3.0 -Post Debridement (cm) - Depth 0.1 2.5 -Total Square (Post) (cm) 26.0 6.60 -Area of Debridement (cm) - Length 5.2 2.2 -Area of Debridement (cm) - Width 5 3 -Total Square (Area) (cm) 26.0 6.6 -Tunneling No No -Undermining/Tunneling No No -Circular Undermining No No -Wound/Ulcer Outcome Not Healed Not Healed -Ulcer Cleansing Rinsed/ Rinsed/ Irrigated with Irrigated with Saline Saline -Foul Odor after Cleansing No No -Bioengineered Tissue No No -Bleeding Controlled with Pressure Pressure -Treatment Response Procedure Procedure Tolerated Well Tolerated Well -Offloading No No -Debridement - Open, 1st 20sq cm Yes Yes -Debridement, Open, ea addt'l 20sq cm 1 or part thereof Pain Scale: 0-10 Numeric Is Patient Pain Free? Yes Yes - Nurse 3 - General Ulcer D/C NN Start: 01/22/22 11:28 Freq: Status: Active Protocol: Activity Type Activity Date Activity User E-sign Co-sign Detail Recorded Client Recorded Date Recorded By Document 01/22/22 11:36 [id number] 01/22/22 11:37 Document 02/07/22 10:10 [facility] [id number] 02/07/22 10:14 [facility] 01/22/22 02/07/22 11:36 10:10 Wound Care Nurse 3 #1- R NECK TUMOR -Ulcer Cleansing Rinsed/ Rinsed/ Irrigated with Irrigated with Saline Saline -Foul Odor after Cleansing No No -Primary Dressing Applied Mepilex Border, Hysept ($), NonAdherent Mepilex Border Contact Layer -Mepilex Border 1 1 Treatment Response Procedure Tolerated Well Pain Scale: 0-10 Numeric Is Patient Pain Free? Yes Yes - Visit Discharge Discharge Condition Stable Stable Ambulatory Status Ambulatory Ambulatory Transportation Private Auto Medication Reconcilliation completed & Yes provided to patient/care provider Clinical Summary of Care Provided Yes Assessment/Plan Assessment/Plan (1) Skin ulcer of right lateral neck with fat layer exposed: CODE(S): L98.492 - Non-pressure chronic ulcer of skin of other sites with fat layer exposed (2) Primary cancer of supraglottis: CODE(S): C32.1 - Malignant neoplasm of supraglottis (3) Mass of right side of neck: CODE(S): R22.1 - Localized swelling, mass and lump, neck PLAN: Plan Patient evaluated at the wound center. Light selective debridement was performed as documented. Wound care - Moistened Dakins 0.25% gauze gently placed into the ulcer covered by Milbridge SAP daily or every other day, after washing with soap and water. He was recently hospitalized for back pain, elevated white count and dehydration. They placed him on Augmentin, which he is still taking. They did not do a wound culture of his neck ulcer. Wound culture obtained today of his right neck ulcer. Depending on the results of the culture, it may be necessary to change his antibiotic. He is finishing up his chemo at and will be starting radiation at [facility] soon. Encouraged good nutrition, with increased protein intake. Discussed that if he starts to experience any bleeding he needs to hold pressure and if the bleeding doesn't stop, he is to continue to hold pressure and call 911 to be transferred to the nearest ED. Both he and his verbalized understanding. Follow up 2weeks. Call or come in sooner if have any concerns.
== END 2022-02-19 23:59 | disposition home or self-care (01) ==
LOC: WC 09:15
PROVIDERS: Visit Provider Nurse Practitioner Family
DX: C32.1 Malignant neoplasm of supraglottis (principal); L98.491 Non-pressure chronic ulcer of skin of other sites limited to breakdown of skin; R22.1 Localized swelling, mass and lump, neck
CPT/HCPCS: 87070; 87075; 87205; 97597; 97598; 99213; G0463

== ENCOUNTER → 2022-02-27 | Outpatient (CLI) | payer BC, MEDICAID, SELFPAY ==
--- NOTE | 2022-02-27 10:22 | ST.MBS ---
Modified Barium Swallow - Patient Information Study Date: 02/27/22 Study Time: 10:25 Direct Billable Minutes: 65 Total Minutes procedure & reportin Diagnosis: Primary cancer of the supraglottis (C32.1) Referring Physician: Joseluis Schwarz Reason for Referral: Objectively assess swallow function, risk for aspiration, and determine recommendations for least restrictive diet textures and compensatory strategies to improve safety of swallow. Study will also provide TRANSCRIBING OPERATORS SUPERVISOR information re: baseline swallow function for comparison after completion of radiation treatment as he is at risk for worsening swallow function and increased risk for aspiration s/p treatment. 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 He received induction chemotherapy (completed Dec 2021) and had a very nice response to treatment, s/p PET scan 01/20/2022. [employer] for [employer], currently on leave. He lives with his , Clair, and two children are still at home. He is currently receiving chemoradiation treatment. Current Diet Ordered: Soft solids / Thin liquids Dentition: Edentulous Mental Status: WNL Respiratory Status: Oxygenating on Room Air - Penetration-Aspiration Scale Penetration-Aspiration Scale: OBJECTIVE ASSESSMENT OF SWALLOW FUNCTION (QUANTITATIVE ? PER TRIAL): PENETRATION / ASPIRATION SCALE (VELEZ): 1 = does not enter airway 2 = enters airway/above vocal folds/ejected 3 = enters airway/above vocal folds/not ejected 4 = enters airway/contacts vocal folds/ejected 5 = enters airway/contacts vocal folds/not ejected 6 = enters airway/below vocal folds/ejected 7 = enters airway/below vocal folds/not ejected despite effort 8 = enters airway/below vocal folds/no effort VIDEOFLOROSCOPIC SCALE SCORE (VELEZ): Grade I = aspiration of material that has penetrated into the laryngeal vestibule, intact cough reflex Grade II = aspiration < 10 % of the bolus, intact cough reflex Grade III = aspiration of < 10 % of the bolus, reduced cough reflex or aspiration of > 10 % of the bolus, intact cough reflex Grade IV = aspiration of > 10 % of the bolus, reduced cough reflex - Penetration-Aspiration Scale Score Thin Liquid via teaspoon Result: 1= does not enter airway Thin Liquid via small single sip from cup Result: 1= does not enter airway Thin Liquid via sequential sips from cup Result: 1= does not enter airway [place] Thick Liquid via small single sip from cup Result: 1= does not enter airway [place] Thick Liquid via small single sip from cup Result: 1= does not enter airway Pudding via teaspoon with esophageal screen Result: 1= does not enter airway 1/2 Cookie Result: 1= does not enter airway Thin Liquid via single sip from straw Result: 2= enter airway/above vocal folds/ejected - Oral Phase Labial Seal: No Labial Escape Tongue Control During Bolus Hold: Posterior escape of less than half of bolus Bolus Transport/Lingual Motion: Delayed initiation of tongue motion Oral Residue: Trace residue lining oral structures - Pharyngeal Phase Initiation of Pharyngeal Swallow: Bolus head in pyriforms Soft Palate Elevation: Trace column of contrast/air between soft palate and pharyngeal wall Laryngeal Elevation: Comp. Superior move thyroid cart w/comp. apprx arytenoid cart-epig pet Anterior Hyoid Excursion: Partial anterior movement Epiglottic Movement: Complete inversion Laryngeal Vestibule Closure at Height of Swallow: Incomplete; narrow column of air/contrast in laryngeal vestibule - trace laryngeal penetration on thin liquid via straw Pharyngoesophageal Segment Opening: Complete distension and complete duration; no obstruction of flow Tongue Base Retraction: Trace column of contrast between tongue base & post. pharyngeal wall Pharyngeal Residue: Trace residue within or on pharyngeal structures - Esophageal Phase Esophageal Clearance: Complete clearance - Diagnosis/Impression Diagnosis: Oropharyngeal swallow function grossly WNL Impression: The patient presents with oropharyngeal swallow function grossly WNL. Mild delay initiating the swallow with thin liquid bolus head in the pyriforms prior to swallow onset. The patient maintained excellent airway closure during the study. No aspiration observed. Trace laryngeal penetration of thin liquids via straw with full ejection. Timely esophageal clearance observed, as well. - Recommendations Diet: Regular Textures, Thin Liquids - Easy to Chew textures (IDDSI Level 7) Compensatory Strategies: Small Bites, Small Sips, Slow Rate, Sitting upright Recommend Repeat Modified Barium Swallow: Yes Comment: Repeat MBS study 3 months after completion of radiation to monitor swallow function as the patient is at risk for worsening dysphagia and aspiration risk s/p radiation treatment. Need for Skilled Speech Therapy Services: Yes Comment: Will recommend the patient for continued outpatient dysphagia therapy to provided continued education re: prophylactic exercise program to maintain optimal oropharyngeal swallow function during radiation treatment. Will also plan for ongoing assessment of diet tolerance and aspiration risk during treatment as he is at risk for worsening swallow function during and after chemoradiation treatment. Education Completed: 1. Described result of evaluation., 2. Pt understands evaluation & agrees with goals and treatment plan., 4. Family/caregivers understand evaluation & agree w/ goals & tx plan. - Status Active ST Patient: Active - Contact Information [facility] Speech Therapy:: Christy Rush M.A. [facility]-TRANSCRIBING OPERAT[employer] SUPERVISOR Speech-Language Pathologist [facility] [address] [place] [address] [email or web address] [phone] 02/27/22 11:22
== END | disposition home or self-care (01) ==
LOC: RAD 10:16
PROVIDERS: Referring Provider Student in an Organized Health Care Education/Training Program; Visit Provider Student in an Organized Health Care Education/Training Program
DX: C32.1 Malignant neoplasm of supraglottis (principal)
CPT/HCPCS: 74230; 92611

== ENCOUNTER 2022-03-21 11:00 | Outpatient (RCR) | payer BC, MEDICAID, SELFPAY ==
[2022-02-20 00:32] VITALS: BP 113/68; PULSE 120; RESP 18; TEMP 36; BMI 21.4
[2022-02-21 09:30] VITALS: BP 85/57; PULSE 103; RESP 18; TEMP 36.6; BMI 21.4
--- NOTE | 2022-02-21 13:45 | PN.PCM_ITS ---
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 He noticed a small mass in August while on vacation. It started to grow rapidly, especially after the biopsy by ENT at the end of September. He is currently receiving Chemotherapy. He has one more treatment after what he is currently receiving. He states he will then start radiation. He was referred to the wound center for drainage management. He and his state that the drainage has improved since starting the Chemo. They are currently not having any issues with bleeding. Wound care - Dakin's 0.25% moistened gauze covered with [place] SAP dressing. Patient states he has been eating well and his weight is stable. He states he will receive a feeding tube before he starts radiation therapy. Today he denies fever, chills, nausea or vomiting. His is a good support system. Progress of Wound: Right neck ulcer is smaller in size and the depth has decreased a small amount. The center of the ulcer has tapia color. Chery wound is stable. There is no active bleeding. His states she is not having any issues with the wound care and no issues with bleeding. Patient recently had all his teeth pulled and he has started radiation therapy. He has some swelling of his lower jaw. Objective Data Objective Data Vital Signs: Vital Signs Temp Pulse Resp BP 97.9 F 103 H 18 85/57 L 02/21/22 09:30 02/21/22 09:30 02/21/22 09:30 02/21/22 09:30 Weight: 158 lb Body Mass Index (BMI) 21.4 Charges/Coding Wound Center CF Procedures [id number]: [id number] RMVL DEVITAL TIS 20 CM/< Multi Select Codes Wound Center CF Procedures [id number]: [id number] RMVL DEVITAL TIS 20 CM/< Physical Exam Const alert and oriented x3 Constitutional Narrative: Patient looks uncomfortable today. General Appearance: cooperative HEENT HEENT Narrative: His teeth have been pulled. His gums are pink and swollen. He has some jaw swelling that goes into his neck. Head and Scalp: atraumatic Eyes PERRL Neck Neck Narrative: Right neck ulcer is stable. He has increase in swelling this week of his neck and jaw. Resp normal respiratory effort Effort and Inspection: able to speak in complete sentences Cardio regular rate Extremity normal capillary refill Skin Wound Narrative: Right neck ulcer is smaller in size, the depth is slightly smaller, the center has less depth with tapia center. Chery wound is stable. Slight edema present. Neuro CN's II-XII intact bilaterally Psych affect normal Debridement Note Debridement Note Wound debrided: neck ulcer Laterality: Right Type of Debridement: Selective debridement Anesthesia Used: 5% Lidocaine Gel Depth: in the subcutaneous layer Percentage of wound debrided: 100 Instrument Used: - (Moistened gauze and cotton swab applicators) Tissue Removed: devitalized tissue and slough Severity: Limited To Skin Breakdown Amount of bleeding with debridement: Mild Bleeding Controlled with: Compression and gauze Patient tolerated procedure: Patient tolerated procedure well Debridement Free Text: Gentle selective debridement performed with moistened gauze and cotton swab applicators to help remove the devitalized tissue surrounding the ulcer Post-Debridement Measurements and Additional Note: Post-Debridement Measurements/Treatment WC - Nurse 1 - General Ulcer Assessment Start: 02/21/22 09:30 Freq: Status: Active Protocol: BRIT Activity Type Activity Date Activity User E-sign Co-sign Detail Recorded Client Recorded Date Recorded By Document 02/21/22 09:30 DL [id number] 02/21/22 09:37 DL 02/21/22 09:30 - Today's Visit Information Type of service Follow-up Visit (Physician/POWER BUILDER DEVELOPER ) Arrival Mode Ambulatory Transfer Assistance None Patient Identification Verified (Name & Yes ) Patient Requires Transmission-Based No Precautions Height and Weight Body Mass Index (BMI) 21.4 BMI Classification Normal Vital Signs Temperature (97.8 F-99.1 F) 97.9 F Temperature Source Temporal Pulse Rate (60-100) 103 H Pulse Location Monitor Respiratory Rate (12-18) 18 Respiratory rate source Observation Blood Pressure (90/60-120/80) 85/57 L Blood Pressure Mean (mm Hg) 66 History Since Last Visit- (Skip if this is Patient's initial visit) Have you changed medications since your No last visit? Any new allergies or adverse reactions No Had a fall/change in ADL's that may No increase risk of falls Signs or symptoms of abuse and/or No neglect since last visit Have you been in the hospital since your No last visit? Has dressing in place as prescribed Yes Has compression in place as prescribed N/A Has offloadiing in place as prescribed N/A Experienced any changes in pain level or No management Pain Scale: 0-10 Numeric Is Patient Pain Free? Yes MARIS - Nurse 1 - General Ulcer Measurement Start: 02/21/22 09:30 Freq: Status: Active Protocol: Activity Type Activity Date Activity User E-sign Co-sign Detail Recorded Client Recorded Date Recorded By Document 02/21/22 09:30 DL [id number] 02/21/22 09:37 DL 02/21/22 09:30 Wound Center Nurse 1 #1- R NECK TUMOR -Current Size (cm) - Length 1.8 -Current Size (cm) - Width 1.1 -Current Size (cm) - Depth 1.9 -Total Square Cm 1.98 -Photo Taken Yes -Exudate Amt Medium -Exudate Type Serosanguineous -Wound Margin Distinct, Outline Attached -Granulation Amt None Present (0 %) -Necrosis Amt Large (67-100%) -Necrotic Tissue Type Adherent Slough -Structure Exposed N/A -Texture (Chery-wound Skin Appearance) Scarring -Moisture (Chery-wound Skin Appearance) No Abnormality -Color (Chery-wound Skin Appearance) No Abnormality -Temperature (Chery-wound Skin No Abnormality Appearance) (Pt Warm) -Tenderness on Palpation (Chery-wound No Skin Appearance) -Ulcer Cleansing Rinsed/ Irrigated with Saline -Foul Odor after Cleansing No -Anesthetic Used 4% Lidocaine Solution MARIS - Nurse 2 - General Ulcer CM Notes Start: 02/21/22 09:30 Freq: Status: Active Protocol: Activity Type Activity Date Activity User E-sign Co-sign Detail Recorded Client Recorded Date Recorded By Document 02/21/22 09:52 [id number] 02/21/22 09:56 JF 02/21/22 09:52 Wound Center Nurse 2 -Time 09:55 -Correct Patient Yes -Correct Side, Site, Position Yes -Correct Procedure Yes -Procedure Performed Yes -Type of Procedure Debridement -Clinical Debridement Epidermis / Dermis -Tissue Removed Epidermis, Dermis -Post Debridement (cm) - Length 1.2 -Post Debridement (cm) - Width 2.0 -Post Debridement (cm) - Depth 2.4 -Total Square (Post) (cm) 2.40 -Area of Debridement (cm) - Length 1.2 -Area of Debridement (cm) - Width 2.0 -Total Square (Area) (cm) 2.40 -Tunneling No -Undermining/Tunneling No -Circular Undermining No -Wound/Ulcer Outcome Not Healed -Ulcer Cleansing Rinsed/ Irrigated with Saline -Foul Odor after Cleansing No -Bioengineered Tissue No -Bleeding Controlled with Pressure -Treatment Response Procedure Tolerated Well -Offloading No -Debridement - Open, 1st 20sq cm Yes Pain Scale: 0-10 Numeric Is Patient Pain Free? Yes - Nurse 3 - General Ulcer D/C NN Start: 02/21/22 09:30 Freq: Status: Active Protocol: Activity Type Activity Date Activity User E-sign Co-sign Detail Recorded Client Recorded Date Recorded By Document 02/21/22 10:02 RACHNA [id number] 02/21/22 10:03 RACHNA 02/21/22 10:02 Wound Care Nurse 3 #1- R NECK TUMOR -Ulcer Cleansing Rinsed/ Irrigated with Saline -Foul Odor after Cleansing No -Other Dressing moist gauze today -Primary Dressing Covered/Secured with Dry Gauze, Secured with Tape Treatment Response Procedure Tolerated Well Pain Scale: 0-10 Numeric Is Patient Pain Free? Yes WC - Visit Discharge Discharge Condition Stable Ambulatory Status Ambulatory, Crutches Notes: resume dakins at home Assessment/Plan Assessment/Plan (1) Skin ulcer of right lateral neck with fat layer exposed: CODE(S): L98.492 - Non-pressure chronic ulcer of skin of other sites with fat layer exposed (2) Primary cancer of supraglottis: CODE(S): C32.1 - Malignant neoplasm of supraglottis (3) Mass of right side of neck: CODE(S): R22.1 - Localized swelling, mass and lump, neck PLAN: Plan Patient evaluated at the wound center. Gentle selective debridement was performed as documented. Wound care - Moistened Dakins 0.25% gauze gently placed into the ulcer covered by [place] SAP daily or every other day, after washing with soap and water. Wound culture obtained on 02/07/22 of his right neck ulcer, which showed no growth of bacteria, but he was on Augmentin at the time of the culture after his most recent hospitalization. His chemo is every 21 days through . He has started radiation therapy. He had his teeth extracted last week. I spoke with Dr. Schwarz's clinical staff about lymphedema pump compression with him starting his radiation. She stated she spoke with Dr. Schwarz and he agrees it would be beneficial, especially with the patient having started radiation and having increased swelling of his lower face and neck. I spoke to the patient and his about the compression and they would like to try it. I will order lymphedema pumps through [facility] since they the only head/neck compression pumps available. Encouraged good nutrition, with increased protein intake. Discussed that if he starts to experience any bleeding he needs to hold pressure and if the bleeding doesn't stop, he is to continue to hold pressure and call 911 to be transferred to the nearest ED. Both he and his verbalized understanding. Follow up 2 weeks. Call or come in sooner if have any concerns.
--- NOTE | 2022-02-21 13:46 | PN.PCM_ITS ---
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 He noticed a small mass in August while on vacation. It started to grow rapidly, especially after the biopsy by ENT at the end of September. He is currently receiving Chemotherapy. He has one more treatment after what he is currently receiving. He states he will then start radiation. He was referred to the wound center for drainage management. He and his state that the drainage has improved since starting the Chemo. They are currently not having any issues with bleeding. Wound care - Dakin's 0.25% moistened gauze covered with [place] SAP dressing. Patient states he has been eating well and his weight is stable. He states he will receive a feeding tube before he starts radiation therapy. Today he denies fever, chills, nausea or vomiting. His is a good support system. Objective Data Objective Data Vital Signs: Vital Signs Temp Pulse Resp BP 97.9 F 103 H 18 85/57 L 02/21/22 09:30 02/21/22 09:30 02/21/22 09:30 02/21/22 09:30 Weight: 158 lb Body Mass Index (BMI) 21.4 Debridement Note Debridement Note Post-Debridement Measurements and Additional Note: Post-Debridement Measurements/Treatment MARIS - Nurse 1 - General Ulcer Assessment Start: 02/21/22 09:30 Freq: Status: Active Protocol: BRIT Activity Type Activity Date Activity User E-sign Co-sign Detail Recorded Client Recorded Date Recorded By Document 02/21/22 09:30 DL [id number] 02/21/22 09:37 DL 02/21/22 09:30 - Today's Visit Information Type of service Follow-up Visit (Physician/MANAGER CARE ) Arrival Mode Ambulatory Transfer Assistance None Patient Identification Verified (Name & Yes ) Patient Requires Transmission-Based No Precautions Height and Weight Body Mass Index (BMI) 21.4 BMI Classification Normal Vital Signs Temperature (97.8 F-99.1 F) 97.9 F Temperature Source Temporal Pulse Rate (60-100) 103 H Pulse Location Monitor Respiratory Rate (12-18) 18 Respiratory rate source Observation Blood Pressure (90/60-120/80) 85/57 L Blood Pressure Mean (mm Hg) 66 History Since Last Visit- (Skip if this is Patient's initial visit) Have you changed medications since your No last visit? Any new allergies or adverse reactions No Had a fall/change in ADL's that may No increase risk of falls Signs or symptoms of abuse and/or No neglect since last visit Have you been in the hospital since your No last visit? Has dressing in place as prescribed Yes Has compression in place as prescribed N/A Has offloadiing in place as prescribed N/A Experienced any changes in pain level or No management Pain Scale: 0-10 Numeric Is Patient Pain Free? Yes WC - Nurse 1 - General Ulcer Measurement Start: 02/21/22 09:30 Freq: Status: Active Protocol: Activity Type Activity Date Activity User E-sign Co-sign Detail Recorded Client Recorded Date Recorded By Document 02/21/22 09:30 DL [id number] 02/21/22 09:37 DL 02/21/22 09:30 Wound Center Nurse 1 #1- R NECK TUMOR -Current Size (cm) - Length 1.8 -Current Size (cm) - Width 1.1 -Current Size (cm) - Depth 1.9 -Total Square Cm 1.98 -Photo Taken Yes -Exudate Amt Medium -Exudate Type Serosanguineous -Wound Margin Distinct, Outline Attached -Granulation Amt None Present (0 %) -Necrosis Amt Large (67-100%) -Necrotic Tissue Type Adherent Slough -Structure Exposed N/A -Texture (Chery-wound Skin Appearance) Scarring -Moisture (Chery-wound Skin Appearance) No Abnormality -Color (Chery-wound Skin Appearance) No Abnormality -Temperature (Chery-wound Skin No Abnormality Appearance) (Pt Warm) -Tenderness on Palpation (Chery-wound No Skin Appearance) -Ulcer Cleansing Rinsed/ Irrigated with Saline -Foul Odor after Cleansing No -Anesthetic Used 4% Lidocaine Solution - Nurse 2 - General Ulcer CM Notes Start: 02/21/22 09:30 Freq: Status: Active Protocol: Activity Type Activity Date Activity User E-sign Co-sign Detail Recorded Client Recorded Date Recorded By Document 02/21/22 09:52 [id number] 02/21/22 09:56 02/21/22 09:52 Wound Center Nurse 2 -Time 09:55 -Correct Patient Yes -Correct Side, Site, Position Yes -Correct Procedure Yes -Procedure Performed Yes -Type of Procedure Debridement -Clinical Debridement Epidermis / Dermis -Tissue Removed Epidermis, Dermis -Post Debridement (cm) - Length 1.2 -Post Debridement (cm) - Width 2.0 -Post Debridement (cm) - Depth 2.4 -Total Square (Post) (cm) 2.40 -Area of Debridement (cm) - Length 1.2 -Area of Debridement (cm) - Width 2.0 -Total Square (Area) (cm) 2.40 -Tunneling No -Undermining/Tunneling No -Circular Undermining No -Wound/Ulcer Outcome Not Healed -Ulcer Cleansing Rinsed/ Irrigated with Saline -Foul Odor after Cleansing No -Bioengineered Tissue No -Bleeding Controlled with Pressure -Treatment Response Procedure Tolerated Well -Offloading No -Debridement - Open, 1st 20sq cm Yes Pain Scale: 0-10 Numeric Is Patient Pain Free? Yes - Nurse 3 - General Ulcer D/C NN Start: 02/21/22 09:30 Freq: Status: Active Protocol: Activity Type Activity Date Activity User E-sign Co-sign Detail Recorded Client Recorded Date Recorded By Document 02/21/22 10:02 [id number] 02/21/22 10:03 DL 02/21/22 10:02 Wound Care Nurse 3 #1- R NECK TUMOR -Ulcer Cleansing Rinsed/ Irrigated with Saline -Foul Odor after Cleansing No -Other Dressing moist gauze today -Primary Dressing Covered/Secured with Dry Gauze, Secured with Tape Treatment Response Procedure Tolerated Well Pain Scale: 0-10 Numeric Is Patient Pain Free? Yes WC - Visit Discharge Discharge Condition Stable Ambulatory Status Ambulatory, Crutches Notes: resume dakins at home
[2022-03-07 10:33] VITALS: BP 94/59; PULSE 98; RESP 18; TEMP 35.8; BMI 21.4
--- NOTE | 2022-03-07 11:56 | PN.PCM_ITS ---
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 He noticed a small mass in August while on vacation. It started to grow rapidly, especially after the biopsy by ENT at the end of September. He is currently receiving Chemotherapy. He has one more treatment after what he is currently receiving. He states he will then start radiation. He was referred to the wound center for drainage management. He and his state that the drainage has improved since starting the Chemo. They are currently not having any issues with bleeding. Wound care -Saline moistened Nu gauze covered with adaptic and topped with dry gauze. Patient states he has been eating well and his weight is stable. He states he will receive a feeding tube before he starts radiation therapy. Today he denies fever, chills, nausea or vomiting. His is a good support system. Progress of Wound: Right neck ulcer is smaller in size and the depth has decreased. Chery wound is stable. There is no active bleeding. His has not been packing the gauze into the ulcer because she thought it had closed over. Patient recently had all his teeth pulled and he has started radiation therapy. He has some swelling of his lower jaw. He has been approved for the head/neck lymphedema pumps and should be receiving them soon. Objective Data Objective Data Vital Signs: Vital Signs Temp Pulse Resp BP 96.4 F L 98 18 94/59 L 03/07/22 10:33 03/07/22 10:33 03/07/22 10:33 03/07/22 10:33 Weight: 158 lb Body Mass Index (BMI) 21.4 Charges/Coding Wound Center CF Procedures 96XXX-98XXX: 47125 RMVL DEVITAL TIS 20 CM/< Multi Select Codes Wound Center CF Procedures 96XXX-98XXX: 02399 RMVL DEVITAL TIS 20 CM/< Physical Exam Const alert and oriented x3 Constitutional Narrative: Patient looks uncomfortable today. General Appearance: cooperative HEENT HEENT Narrative: He has some jaw swelling bilaterally. Head and Scalp: atraumatic Eyes PERRL Resp normal respiratory effort Effort and Inspection: able to speak in complete sentences Cardio regular rate Extremity normal capillary refill Skin Wound Narrative: Right neck ulcer is smaller in size, the depth has . Chery wound is stable. Slight edema present. Neuro CN's II-XII intact bilaterally Psych affect normal Debridement Note Debridement Note Wound debrided: neck ulcer Laterality: Right Type of Debridement: Selective debridement Anesthesia Used: 5% Lidocaine Gel Depth: in the subcutaneous layer Percentage of wound debrided: 100 Instrument Used: - (Moistened gauze and cotton swab applicators) Tissue Removed: devitalized tissue and slough Severity: Limited To Skin Breakdown Amount of bleeding with debridement: Mild Bleeding Controlled with: Compression and gauze Patient tolerated procedure: Patient tolerated procedure well Debridement Free Text: Gentle selective debridement performed with moistened gauze and cotton swab applicators to help remove the devitalized tissue surrounding the ulcer Post-Debridement Measurements and Additional Note: Post-Debridement Measurements/Treatment - Nurse 1 - General Ulcer Assessment Start: 02/21/22 09:30 Freq: Status: Active Protocol: WC.LOWZAIDAT Activity Type Activity Date Activity User E-sign Co-sign Detail Recorded Client Recorded Date Recorded By Document 02/21/22 09:30 [id number] 02/21/22 09:37 DL Document 03/07/22 10:33 DL [id number] 03/07/22 10:38 DL 02/21/22 03/07/22 09:30 10:33 - Today's Visit Information Type of service Follow-up Visit Follow-up Visit (Physician/INSURANCE VERIFICATION REP (Physician/INSURANCE VERIFICATION REP ) ) Arrival Mode Ambulatory Ambulatory Transfer Assistance None None Patient Identification Verified (Name & Yes Yes ) Patient Requires Transmission-Based No No Precautions Height and Weight Body Mass Index (BMI) 21.4 21.4 BMI Classification Normal Normal Vital Signs Temperature (97.8 F-99.1 F) 97.9 F 96.4 F L Temperature Source Temporal Temporal Pulse Rate (60-100) 103 H 98 Pulse Location Monitor Monitor Respiratory Rate (12-18) 18 18 Respiratory rate source Observation Observation Blood Pressure (90/60-120/80) 85/57 L 94/59 L Blood Pressure Mean (mm Hg) 66 70 Source Monitor History Since Last Visit- (Skip if this is Patient's initial visit) Have you changed medications since your No No last visit? Any new allergies or adverse reactions No No Had a fall/change in ADL's that may No No increase risk of falls Signs or symptoms of abuse and/or No No neglect since last visit Have you been in the hospital since your No last visit? Has dressing in place as prescribed Yes Yes Has compression in place as prescribed N/A N/A Has offloadiing in place as prescribed N/A N/A Experienced any changes in pain level or No No management Pain Scale: 0-10 Numeric Is Patient Pain Free? Yes Yes WC - Nurse 1 - General Ulcer Measurement Start: 02/21/22 09:30 Freq: Status: Active Protocol: Activity Type Activity Date Activity User E-sign Co-sign Detail Recorded Client Recorded Date Recorded By Document 02/21/22 09:30 DL [id number] 02/21/22 09:37 DL Document 03/07/22 10:33 DL [id number] 03/07/22 10:38 DL 02/21/22 03/07/22 09:30 10:33 Wound Center Nurse 1 #1- R NECK TUMOR -Current Size (cm) - Length 1.8 1 -Current Size (cm) - Width 1.1 0.6 -Current Size (cm) - Depth 1.9 1 -Total Square Cm 1.98 0.6 -Photo Taken Yes Yes -Exudate Amt Medium Small -Exudate Type Serosanguineous Serosanguineous -Wound Margin Distinct, Distinct, Outline Outline Attached Attached -Granulation Amt None Present (0 Large (67-100%) %) -Granulation Quality Red -Necrosis Amt Large (67-100%) None Present (0 %) -Necrotic Tissue Type Adherent Slough -Structure Exposed N/A N/A -Texture (Chery-wound Skin Appearance) Scarring Scarring -Moisture (Chery-wound Skin Appearance) No Abnormality Dry/Scaly -Color (Chery-wound Skin Appearance) No Abnormality No Abnormality -Temperature (Chery-wound Skin No Abnormality No Abnormality Appearance) (Pt Warm) (Pt Warm) -Tenderness on Palpation (Chery-wound No Yes Skin Appearance) -Ulcer Cleansing Rinsed/ Rinsed/ Irrigated with Irrigated with Saline Saline -Foul Odor after Cleansing No No -Anesthetic Used 4% Lidocaine Solution - Nurse 2 - General Ulcer CM Notes Start: 02/21/22 09:30 Freq: Status: Active Protocol: Activity Type Activity Date Activity User E-sign Co-sign Detail Recorded Client Recorded Date Recorded By Document 02/21/22 09:52 [id number] 02/21/22 09:56 Document 03/07/22 11:01 [id number] 03/07/22 11:08 02/21/22 03/07/22 09:52 11:01 Wound Center Nurse 2 #1- R NECK TUMOR -Time 09:55 11:07 -Correct Patient Yes Yes -Correct Side, Site, Position Yes Yes -Correct Procedure Yes Yes -Procedure Performed Yes Yes -Type of Procedure Debridement Debridement -Clinical Debridement Epidermis / Epidermis / Dermis Dermis -Tissue Removed Epidermis, Epidermis, Dermis Dermis -Post Debridement (cm) - Length 1.2 0.6 -Post Debridement (cm) - Width 2.0 0.7 -Post Debridement (cm) - Depth 2.4 1.0 -Total Square (Post) (cm) 2.40 0.42 -Area of Debridement (cm) - Length 1.2 0.6 -Area of Debridement (cm) - Width 2.0 0.7 -Total Square (Area) (cm) 2.40 0.42 -Tunneling No No -Undermining/Tunneling No No -Circular Undermining No No -Wound/Ulcer Outcome Not Healed Not Healed -Ulcer Cleansing Rinsed/ Rinsed/ Irrigated with Irrigated with Saline Saline -Foul Odor after Cleansing No No -Bioengineered Tissue No No -Bleeding Controlled with Pressure Pressure -Treatment Response Procedure Procedure Tolerated Well Tolerated Well -Offloading No No -Debridement - Open, 1st 20sq cm Yes Yes Pain Scale: 0-10 Numeric Is Patient Pain Free? Yes Yes MARIS - Nurse 3 - General Ulcer D/C NN Start: 02/21/22 09:30 Freq: Status: Active Protocol: Activity Type Activity Date Activity User E-sign Co-sign Detail Recorded Client Recorded Date Recorded By Document 02/21/22 10:02 DL [id number] 02/21/22 10:03 DL Document 03/07/22 11:30 RB [id number] 03/07/22 11:31 RB 02/21/22 03/07/22 10:02 11:30 Wound Care Nurse 3 #1- R NECK TUMOR -Ulcer Cleansing Rinsed/ Irrigated with Saline -Foul Odor after Cleansing No -Primary Dressing Applied NonAdherent Contact Layer, Nugauze, Iodoform -Other Dressing moist gauze today -Primary Dressing Covered/Secured with Dry Gauze, Dry Gauze, Secured with Secured with Tape Tape -Nugauze, Iodoform 04/25 Treatment Response Procedure Procedure Tolerated Well Tolerated Well Pain Scale: 0-10 Numeric Is Patient Pain Free? Yes Yes Teaching: Wound Center Dressing Your Wound -Person Taught Patient -Teaching Method Discussion -Response to teaching Verbalize understanding, Reinforcement needed WC - Visit Discharge Discharge Condition Stable Stable Ambulatory Status Ambulatory, Ambulatory Crutches Transportation Private Auto Medication Reconcilliation completed & No provided to patient/care provider Notes: resume dakins at home Assessment/Plan Assessment/Plan (1) Skin ulcer of right lateral neck with fat layer exposed: CODE(S): L98.492 - Non-pressure chronic ulcer of skin of other sites with fat layer exposed (2) Primary cancer of supraglottis: CODE(S): C32.1 - Malignant neoplasm of supraglottis (3) Mass of right side of neck: CODE(S): R22.1 - Localized swelling, mass and lump, neck PLAN: Plan Patient evaluated at the wound center. Gentle selective debridement was performed as documented. Wound care -Saline moistened Nu gauze covered with adaptic and topped with dry gauze daily or every other day, after washing with soap and water. Wound culture obtained on 02/07/22 of his right neck ulcer, which showed no growth of bacteria, but he was on Augmentin at the time of the culture after his most recent hospitalization. His chemo is every 21 days through . He has started radiation therapy. He had his teeth extracted and has stated that his appetite is slowly improving. He has been measured for the lymphedema compression pump and should be getting in the next couple weeks through [facility] since they the only head/neck compression pumps available. Encouraged good nutrition, with increased protein intake. Discussed that if he starts to experience any bleeding he needs to hold pressure and if the bleeding doesn't stop, he is to continue to hold pressure and call 911 to be transferred to the nearest ED. Both he and his verbalized understanding. Follow up 2 weeks. Call or come in sooner if have any concerns.
[2022-03-21 11:05] VITALS: BP 99/63; PULSE 92; RESP 20; TEMP 36.3; BMI 21.4
--- NOTE | 2022-03-21 14:32 | PCM.WC.PN ---
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 He noticed a small mass in August while on vacation. It started to grow rapidly, especially after the biopsy by ENT at the end of September. He is currently receiving Chemotherapy. He has one more treatment after what he is currently receiving. He states he will then start radiation. He was referred to the wound center for drainage management. He and his state that the drainage has improved since starting the Chemo. They are currently not having any issues with bleeding. Wound care -Saline moistened Nu gauze covered with adaptic and topped with dry gauze. Patient states he has been eating well and his weight is stable. He states he will receive a feeding tube before he starts radiation therapy. Today he denies fever, chills, nausea or vomiting. His is a good support system. Progress of Wound: Right neck ulcer is smaller in size and the depth has decreased. Chery wound is stable. There is only bleeding when they pack the ulcer, therefore his has not been packing the gauze into the ulcer. She states there is a small amount of clear drainage. He has some swelling of his lower jaw. Objective Data Objective Data Vital Signs: Vital Signs Temp Pulse Resp BP 97.3 F L 92 20 H 99/63 03/21/22 11:05 03/21/22 11:05 03/21/22 11:05 03/21/22 11:05 Weight: 158 lb Body Mass Index (BMI) 21.4 Charges/Coding Wound Center CF Procedures 96XXX-98XXX: 64322 RMVL DEVITAL TIS 20 CM/< Multi Select Codes Wound Center CF Procedures 96XXX-98XXX: 64260 RMVL DEVITAL TIS 20 CM/< Physical Exam Const alert and oriented x3 General Appearance: cooperative HEENT HEENT Narrative: He has some jaw swelling on right lower jaw/mandible area Head and Scalp: atraumatic Eyes PERRL Resp normal respiratory effort and clear to auscultation bilaterally Effort and Inspection: able to speak in complete sentences Cardio regular rate and regular rhythm Extremity normal capillary refill Skin Wound Narrative: Right neck ulcer is smaller in size, the depth has . Chery wound is stable. Slight edema present on right neck and right lower jaw. Neuro CN's II-XII intact bilaterally Psych affect normal Debridement Note Debridement Note Wound debrided: neck ulcer Laterality: Right Type of Debridement: Selective debridement Anesthesia Used: 5% Lidocaine Gel Depth: in the subcutaneous layer Percentage of wound debrided: 100 Instrument Used: - (Moistened gauze and cotton swab applicators) Tissue Removed: devitalized tissue and slough Severity: Limited To Skin Breakdown Amount of bleeding with debridement: Mild Bleeding Controlled with: Compression and gauze Patient tolerated procedure: Patient tolerated procedure well Debridement Free Text: Gentle selective debridement performed with moistened gauze and cotton swab applicators to help remove the devitalized tissue surrounding the ulcer Post-Debridement Measurements and Additional Note: Post-Debridement Measurements/Treatment - Nurse 1 - General Ulcer Assessment Start: 02/21/22 09:30 Freq: Status: Active Protocol: BRTI Activity Type Activity Date Activity User E-sign Co-sign Detail Recorded Client Recorded Date Recorded By Document 02/21/22 09:30 DL [id number] 02/21/22 09:37 DL Document 03/07/22 10:33 DL [id number] 03/07/22 10:38 DL Document 03/21/22 11:05 DL [id number] 03/21/22 11:10 DL 02/21/22 03/07/22 03/21/22 09:30 10:33 11:05 - Today's Visit Information Type of service Follow-up Visit Follow-up Visit Follow-up Visit (Physician/SUPERVISOR WET POUR (Physician/SUPERVISOR WET POUR (Physician/SUPERVISOR WET POUR ) ) ) Arrival Mode Ambulatory Ambulatory Ambulatory Transfer Assistance None None None Patient Identification Verified (Name & Yes Yes Yes ) Patient Requires Transmission-Based No No No Precautions Height and Weight Body Mass Index (BMI) 21.4 21.4 21.4 BMI Classification Normal Normal Normal Vital Signs Temperature (97.8 F-99.1 F) 97.9 F 96.4 F L 97.3 F L Temperature Source Temporal Temporal Temporal Pulse Rate (60-100) 103 H 98 92 Pulse Location Monitor Monitor Monitor Respiratory Rate (12-18) 18 18 20 H Respiratory rate source Observation Observation Observation Blood Pressure (90/60-120/80) 85/57 L 94/59 L 99/63 Blood Pressure Mean (mm Hg) 66 70 75 Source Monitor Monitor History Since Last Visit- (Skip if this is Patient's initial visit) Have you changed medications since your No No No last visit? Any new allergies or adverse reactions No No No Had a fall/change in ADL's that may No No No increase risk of falls Signs or symptoms of abuse and/or No No No neglect since last visit Have you been in the hospital since your No No last visit? Has dressing in place as prescribed Yes Yes Yes Has compression in place as prescribed N/A N/A N/A Has offloadiing in place as prescribed N/A N/A N/A Experienced any changes in pain level or No No Yes management Pain Scale: 0-10 Numeric Is Patient Pain Free? Yes Yes Yes WC - Nurse 1 - General Ulcer Measurement Start: 02/21/22 09:30 Freq: Status: Active Protocol: Activity Type Activity Date Activity User E-sign Co-sign Detail Recorded Client Recorded Date Recorded By Document 02/21/22 09:30 DL [id number] 02/21/22 09:37 DL Document 03/07/22 10:33 DL [id number] 03/07/22 10:38 DL Document 03/21/22 11:05 DL [id number] 03/21/22 11:10 DL 02/21/22 03/07/22 03/21/22 09:30 10:33 11:05 Wound Center Nurse 1 #1- R NECK TUMOR -Current Size (cm) - Length 1.8 1 1.2 -Current Size (cm) - Width 1.1 0.6 0.5 -Current Size (cm) - Depth 1.9 1 0.2 -Total Square Cm 1.98 0.6 0.60 -Photo Taken Yes Yes Yes -Exudate Amt Medium Small Small -Exudate Type Serosanguineous Serosanguineous Serosanguineous -Wound Margin Distinct, Distinct, Thickened & Outline Outline Rolled Under Attached Attached -Granulation Amt None Present (0 Large (67-100%) None Present (0 %) %) -Granulation Quality Red -Necrosis Amt Large (67-100%) None Present (0 Large (67-100%) %) -Necrotic Tissue Type Adherent Slough Adherent Slough -Structure Exposed N/A N/A N/A -Texture (Chery-wound Skin Appearance) Scarring Scarring Scarring -Moisture (Chery-wound Skin Appearance) No Abnormality Dry/Scaly No Abnormality -Color (Chery-wound Skin Appearance) No Abnormality No Abnormality No Abnormality -Temperature (Chery-wound Skin No Abnormality No Abnormality No Abnormality Appearance) (Pt Warm) (Pt Warm) (Pt Warm) -Tenderness on Palpation (Chery-wound No Yes No Skin Appearance) -Ulcer Cleansing Rinsed/ Rinsed/ Rinsed/ Irrigated with Irrigated with Irrigated with Saline Saline Saline -Foul Odor after Cleansing No No No -Anesthetic Used 4% Lidocaine 5% Lidocaine Solution Gel WC - Nurse 2 - General Ulcer CM Notes Start: 02/21/22 09:30 Freq: Status: Active Protocol: Activity Type Activity Date Activity User E-sign Co-sign Detail Recorded Client Recorded Date Recorded By Document 02/21/22 09:52 [id number] 02/21/22 09:56 Document 03/07/22 11:01 [id number] 03/07/22 11:08 Document 03/21/22 11:19 [id number] 03/21/22 11:29 02/21/22 03/07/22 03/21/22 09:52 11:01 11:19 Wound Center Nurse 2 #1- R NECK TUMOR -Time 09:55 11:07 11:23 -Correct Patient Yes Yes Yes -Correct Side, Site, Position Yes Yes Yes -Correct Procedure Yes Yes Yes -Procedure Performed Yes Yes Yes -Type of Procedure Debridement Debridement Debridement -Clinical Debridement Epidermis / Epidermis / Epidermis / Dermis Dermis Dermis -Tissue Removed Epidermis, Epidermis, Epidermis, Dermis Dermis Dermis -Post Debridement (cm) - Length 1.2 0.6 0.5 -Post Debridement (cm) - Width 2.0 0.7 0.5 -Post Debridement (cm) - Depth 2.4 1.0 1.2 -Total Square (Post) (cm) 2.40 0.42 0.25 -Area of Debridement (cm) - Length 1.2 0.6 0.5 -Area of Debridement (cm) - Width 2.0 0.7 0.5 -Total Square (Area) (cm) 2.40 0.42 0.25 -Tunneling No No No -Undermining/Tunneling No No No -Circular Undermining No No No -Wound/Ulcer Outcome Not Healed Not Healed Not Healed -Ulcer Cleansing Rinsed/ Rinsed/ Wound Cleanser Irrigated with Irrigated with Saline Saline -Foul Odor after Cleansing No No No -Bioengineered Tissue No No No -Bleeding Controlled with Pressure Pressure Pressure -Treatment Response Procedure Procedure Procedure Tolerated Well Tolerated Well Tolerated Well -Offloading No No No -Debridement - Open, 1st 20sq cm Yes Yes Yes Pain Scale: 0-10 Numeric Is Patient Pain Free? Yes Yes Yes - Nurse 3 - General Ulcer D/C NN Start: 02/21/22 09:30 Freq: Status: Active Protocol: Activity Type Activity Date Activity User E-sign Co-sign Detail Recorded Client Recorded Date Recorded By Document 02/21/22 10:02 [id number] 02/21/22 10:03 DL Document 03/07/22 11:30 RB [id number] 03/07/22 11:31 RB Document 03/21/22 11:39 DL [id number] 03/21/22 11:40 DL 02/21/22 03/07/22 03/21/22 10:02 11:30 11:39 Wound Care Nurse 3 #1- R NECK TUMOR -Ulcer Cleansing Rinsed/ Rinsed/ Irrigated with Irrigated with Saline Saline -Foul Odor after Cleansing No No -Primary Dressing Applied NonAdherent Aquacel AG 4x4 Contact Layer, Nugauze, Iodoform -Other Dressing moist gauze today -Primary Dressing Covered/Secured with Dry Gauze, Dry Gauze, Dry Gauze, Secured with Secured with Secured with Tape Tape Tape -Aquacel AG 4x4 2 -Nugauze, Iodoform 04/25 1 Treatment Response Procedure Procedure Procedure Tolerated Well Tolerated Well Tolerated Well Pain Scale: 0-10 Numeric Is Patient Pain Free? Yes Yes Yes Teaching: Wound Center Dressing Your Wound -Person Taught Patient -Teaching Method Discussion -Response to teaching Verbalize understanding, Reinforcement needed WC - Visit Discharge Discharge Condition Stable Stable Stable Ambulatory Status Ambulatory, Ambulatory Ambulatory Crutches Transportation Private Auto Private Auto Medication Reconcilliation completed & No provided to patient/care provider Notes: resume dakins at home Assessment/Plan Assessment/Plan (1) Skin ulcer of right lateral neck with fat layer exposed: CODE(S): L98.492 - Non-pressure chronic ulcer of skin of other sites with fat layer exposed (2) Primary cancer of supraglottis: CODE(S): C32.1 - Malignant neoplasm of supraglottis (3) Mass of right side of neck: CODE(S): R22.1 - Localized swelling, mass and lump, neck (4) Mandibular swelling: CODE(S): R22.0 - Localized swelling, mass and lump, head PLAN: Plan Patient evaluated at the wound center. Wound care -Wash with soap and water daily, pat dry. Cover ulcer opening with Aquacel-Ag then cover with gauze, secure with silicone tape daily. Wound culture obtained on 02/07/22 of his right neck ulcer, which showed no growth of bacteria, but he was on Augmentin at the time of the culture after his most recent hospitalization. His chemo is every 21 days through . He continues to have radiation therapy. He had his teeth extracted and has stated that his appetite is slowly improving. He has been measured for the lymphedema compression pump. He needs to continue to wear the head neck compression to help with swelling, even if it is an ANGELA wrap around his jaw/head to hold it into place. Encouraged good nutrition, with increased protein intake. Discussed that if he starts to experience any bleeding he needs to hold pressure and if the bleeding doesn't stop, he is to continue to hold pressure and call 911 to be transferred to the nearest ED. Both he and his verbalized understanding. Follow up 2 weeks. Call or come in sooner if have any concerns.
== END 2022-03-21 23:59 | disposition home or self-care (01) ==
LOC: WC 11:00
PROVIDERS: Visit Provider Nurse Practitioner Family
DX: C32.1 Malignant neoplasm of supraglottis (principal); L98.491 Non-pressure chronic ulcer of skin of other sites limited to breakdown of skin; R22.1 Localized swelling, mass and lump, neck
CPT/HCPCS: 97597

== ENCOUNTER 2022-04-11 10:15 | Outpatient (RCR) | payer BC, MEDICAID, SELFPAY ==
[2022-03-22 00:29] VITALS: BP 99/63; PULSE 92; RESP 20; TEMP 36.3; BMI 21.4
[2022-04-04 11:51] VITALS: BP 92/68; PULSE 82; RESP 18; TEMP 36.1; BMI 21.4
--- NOTE | 2022-04-04 12:35 | PCM.WC.PN ---
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 He noticed a small mass in August while on vacation. It started to grow rapidly, especially after the biopsy by ENT at the end of September. He is currently receiving Chemotherapy. He has one more treatment after what he is currently receiving. He states he will then start radiation. He was referred to the wound center for drainage management. He and his state that the drainage has improved since starting the Chemo. They are currently not having any issues with bleeding. Wound care -Saline moistened Nu gauze covered with adaptic and topped with dry gauze. Patient states he has been eating well and his weight is stable. He states he will receive a feeding tube before he starts radiation therapy. Today he denies fever, chills, nausea or vomiting. His is a good support system. Progress of Wound: Right neck ulcer chery wound is red and blistering, excoriated with sloughing skin. The center ulcer is stable with 0.3 mm depth, when measuring the depth it causes the ulcer to bleed. Placing Silvadene cream to the area as prescribed by Dr. Schwarz. He has completed radiation. He completes chemotherapy Saturday. He is currently having pain with neck movement and light touch to the ulcer area. He also is experiencing pain with swallowing. He has been using his PEG to support his nutrition. He continues to have swelling of his jaw/mandible area on the right, that is stable. Objective Data Objective Data Vital Signs: Vital Signs Temp Pulse Resp BP 97 F L 82 18 92/68 04/04/22 11:51 04/04/22 11:51 04/04/22 11:51 04/04/22 11:51 Weight: 158 lb Body Mass Index (BMI) 21.4 Charges/Coding Procedures Integumentary 111xxx-113xx: 13935 Ginger subq tissue 20 sq cm/< Add On Codes: 20556 Ginger subq tissue add-on (x2) Debridement Note Debridement Note Wound debrided: neck ulcer Laterality: Right Wound Grade/Stage: Stage II Type of Debridement: Excisional debridement Anesthesia Used: 5% Lidocaine Gel and Cetacaine Depth: Down to and including healthy tissue and in the subcutaneous layer Percentage of wound debrided: 100 Instrument Used: 7mm curette and - (Scissors and pick ups) Tissue Removed: devitalized tissue and slough Severity: Limited To Skin Breakdown Amount of bleeding with debridement: Mild Bleeding Controlled with: Compression and gauze Patient tolerated procedure: Patient did not tolerate procedure well Debridement Free Text: Removed, dry, devitalized tissue and slough, tissue underneath is pink. Minimal bleeding. Patient experienced increased discomfort with debridement. Center ulcer is stable, depth has decreased slightly. Post-Debridement Measurements and Additional Note: Post-Debridement Measurements/Treatment - Nurse 1 - General Ulcer Assessment Start: 04/04/22 11:51 Freq: Status: Active Protocol: BRIT Activity Type Activity Date Activity User E-sign Co-sign Detail Recorded Client Recorded Date Recorded By Document 04/04/22 11:51 [id number] 04/04/22 11:53 04/04/22 11:51 - Today's Visit Information Type of service Follow-up Visit (Physician/TECHNICAL TRAINER ) Arrival Mode Ambulatory Transfer Assistance None Patient Identification Verified (Name & Yes ) Height and Weight Body Mass Index (BMI) 21.4 BMI Classification Normal Vital Signs Temperature (97.8 F-99.1 F) 97 F L Temperature Source Temporal Pulse Rate (60-100) 82 Pulse Location Monitor Respiratory Rate (12-18) 18 Respiratory rate source Observation Blood Pressure (90/60-120/80) 92/68 Blood Pressure Mean (mm Hg) 76 Source Monitor Position Sitting Blood Pressure Location Left Arm History Since Last Visit- (Skip if this is Patient's initial visit) Have you changed medications since your No last visit? Any new allergies or adverse reactions No Had a fall/change in ADL's that may No increase risk of falls Signs or symptoms of abuse and/or No neglect since last visit Have you been in the hospital since your No last visit? Has dressing in place as prescribed Yes Has compression in place as prescribed No Has offloadiing in place as prescribed No Experienced any changes in pain level or No management Pain Scale: 0-10 Numeric Is Patient Pain Free? Yes neck -Description Sharp -Intensity 8 -Pain Behavior Restlessness -Pain Aggravating Factors Debridement -Alleviating Factors/Interventions Medication -Effectiveness of Alleviating Factor/ Minimally Intervention effective WC - Nurse 1 - General Ulcer Measurement Start: 04/04/22 11:51 Freq: Status: Active Protocol: Activity Type Activity Date Activity User E-sign Co-sign Detail Recorded Client Recorded Date Recorded By Document 04/04/22 11:51 RB [id number] 04/04/22 11:53 RB 04/04/22 11:51 Wound Center Nurse 1 #1- R NECK TUMOR -Combined with other wound No -Current Size (cm) - Length 0.4 -Current Size (cm) - Width 0.4 -Current Size (cm) - Depth 0.2 -Total Square Cm 0.16 -Tunneling No -Undermining/Tunneling No -Circular Undermining No -Exudate Amt Medium -Exudate Type Serosanguineous -Wound Margin Distinct, Outline Attached -Granulation Amt Medium (34-66%) -Granulation Quality [place] -Slough/Fibrin Yes -Necrosis Amt Medium (34-66%) -Necrotic Tissue Type Adherent Slough -Structure Exposed N/A -Texture (Chery-wound Skin Appearance) Assessed, Excoriation -Moisture (Chery-wound Skin Appearance) Weeping -Color (Chery-wound Skin Appearance) Assessed -Temperature (Chery-wound Skin No Abnormality Appearance) (Pt Warm) -Tenderness on Palpation (Chery-wound No Skin Appearance) -Ulcer Cleansing Wound Cleanser -Foul Odor after Cleansing No -Anesthetic Used 4% Lidocaine Solution WC - Nurse 2 - General Ulcer CM Notes Start: 04/04/22 11:51 Freq: Status: Active Protocol: Activity Type Activity Date Activity User E-sign Co-sign Detail Recorded Client Recorded Date Recorded By Document 04/04/22 12:03 DANIA [id number] 04/04/22 12:26 DANIA 04/04/22 12:03 Wound Center Nurse 2 -Time 12:21 -Correct Patient Yes -Correct Side, Site, Position Yes -Correct Procedure Yes -Procedure Performed Yes -Type of Procedure Debridement -Clinical Debridement Subcutaneous -Tissue Removed Subcutaneous -Post Debridement (cm) - Length 5.5 -Post Debridement (cm) - Width 14 -Post Debridement (cm) - Depth 0.7 -Total Square (Post) (cm) 77.0 -Area of Debridement (cm) - Length 5.5 -Area of Debridement (cm) - Width 14 -Total Square (Area) (cm) 77.0 -Tunneling No -Undermining/Tunneling No -Circular Undermining No -Wound/Ulcer Outcome Not Healed -Ulcer Cleansing Rinsed/ Irrigated with Saline -Foul Odor after Cleansing No -Bioengineered Tissue No -Bleeding Controlled with Pressure -Treatment Response Procedure Tolerated Well -Offloading No -Debridement - Subq, 1st 20sq cm Yes -Debridement, SubQ, ea addt'l 20sq cm 3 or part thereof Pain Scale: 0-10 Numeric Is Patient Pain Free? Yes - Nurse 3 - General Ulcer D/C NN Start: 04/04/22 11:51 Freq: Status: Active Protocol: Activity Type Activity Date Activity User E-sign Co-sign Detail Recorded Client Recorded Date Recorded By Document 04/04/22 12:26 [id number] 04/04/22 12:27 04/04/22 12:26 Wound Care Nurse 3 #1- R NECK TUMOR -Ulcer Cleansing Rinsed/ Irrigated with Saline -Foul Odor after Cleansing No -Other Dressing silvadene cream -Primary Dressing Covered/Secured with Dry Gauze, Secured with Tape Pain Scale: 0-10 Numeric Is Patient Pain Free? Yes - Visit Discharge Discharge Condition Stable Ambulatory Status Ambulatory Transportation Private Auto Accompanied by Medication Reconcilliation completed & Yes provided to patient/care provider Clinical Summary of Care Provided Yes Assessment/Plan Assessment/Plan (1) Skin ulcer of right lateral neck with fat layer exposed: CODE(S): L98.492 - Non-pressure chronic ulcer of skin of other sites with fat layer exposed (2) Primary cancer of supraglottis: CODE(S): C32.1 - Malignant neoplasm of supraglottis (3) Mass of right side of neck: CODE(S): R22.1 - Localized swelling, mass and lump, neck (4) Mandibular swelling: CODE(S): R22.0 - Localized swelling, mass and lump, head PLAN: Plan Patient evaluated at the wound center. Wound care -Gently wash with soap and water daily, pat dry. Cover with Silvadene cream and top with gauze, secure with silicone tape daily. His does not feel comfortable packing anything into the center depth of the ulcer. Wound culture obtained on 02/07/22 of his right neck ulcer, which showed no growth of bacteria, but he was on Augmentin at the time of the culture after his most recent hospitalization. He completes his chemotherapy on Saturday. That is through . He completed his radiation therapy. He is keeping his head elevated to help with the swelling of his right jaw/mandible area. That does not seem to be helping with the edema. Continue to use ANGELA wrap to help with compression, especially at night. He will not tolerate compression around his neck due to how painful his ulcer currently is. He has been measured for the lymphedema compression pumps. Encouraged good nutrition, with increased protein intake. Discussed that if he starts to experience any bleeding he needs to hold pressure and if the bleeding doesn't stop, he is to continue to hold pressure and call 911 to be transferred to the nearest ED. Both he and his verbalized understanding. Follow up one week. Call or come in sooner if have any concerns.
[2022-04-11 11:24] VITALS: BP 75/56; PULSE 102; RESP 18; TEMP 36.5; BMI 21.4
--- NOTE | 2022-04-11 11:57 | PCM.WC.PN ---
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 He noticed a small mass in August while on vacation. It started to grow rapidly, especially after the biopsy by ENT at the end of September. He is currently receiving Chemotherapy. He has one more treatment after what he is currently receiving. He states he will then start radiation. He was referred to the wound center for drainage management. He and his state that the drainage has improved since starting the Chemo. They are currently not having any issues with bleeding. Wound care - Silvadene cream to the burn areas daily covered with adaptic then gauze. Today he denies fever, chills, nausea or vomiting. His is a good support system. Progress of Wound: Right neck ulcer chery wound is now a radiation burn. Burned area is beefy pink with a shiny appearance. It is extremely painful when open to air and when touched. The center ulcer depth has healed in. Much of the sloughing tissue from last week is now gone. The burn starts on the right neck and continues over the left anterior neck. He is having a significant amount of pain, he has palliative care who is manageing his pain for him. Objective Data Objective Data Vital Signs: Vital Signs Temp Pulse Resp BP 97.7 F L 102 H 18 75/56 L 04/11/22 11:24 04/11/22 11:24 04/11/22 11:24 04/11/22 11:24 Weight: 158 lb Body Mass Index (BMI) 21.4 Charges/Coding Procedures Integumentary 111xxx-113xx: 64390 Ginger subq tissue 20 sq cm/< Debridement Note Debridement Note Wound debrided: neck ulcer/radiation burn Laterality: Right Wound Grade/Stage: Stage II Type of Debridement: Excisional debridement Anesthesia Used: 5% Lidocaine Gel and Cetacaine Depth: Down to and including healthy tissue and in the subcutaneous layer Percentage of wound debrided: 100 Instrument Used: - (Scissors and pick ups) Tissue Removed: devitalized tissue and slough Severity: Limited To Skin Breakdown Amount of bleeding with debridement: Mild Bleeding Controlled with: Compression and gauze Patient tolerated procedure: Patient did not tolerate procedure well Debridement Free Text: Removed, dry, devitalized tissue and slough, tissue underneath is pink. Minimal bleeding. Patient experienced increased discomfort with debridement. Center ulcer is improved, the depth has resolved. Post-Debridement Measurements and Additional Note: Post-Debridement Measurements/Treatment WC - Nurse 1 - General Ulcer Assessment Start: 04/04/22 11:51 Freq: Status: Active Protocol: [email or web address].[email or web address] Activity Type Activity Date Activity User E-sign Co-sign Detail Recorded Client Recorded Date Recorded By Document 04/04/22 11:51 RB [id number] 04/04/22 11:53 RB Document 04/11/22 11:24 DL [id number] 04/11/22 11:32 DL 04/04/22 04/11/22 11:51 11:24 - Today's Visit Information Type of service Follow-up Visit Follow-up Visit (Physician/HUMAN RESOURCES OPERATIONS MANAGER (Physician/HUMAN RESOURCES OPERATIONS MANAGER ) ) Arrival Mode Ambulatory Ambulatory Transfer Assistance None Patient Identification Verified (Name & Yes Yes ) Patient Requires Transmission-Based No Precautions Height and Weight Body Mass Index (BMI) 21.4 21.4 BMI Classification Normal Normal Vital Signs Temperature (97.8 F-99.1 F) 97 F L 97.7 F L Temperature Source Temporal Temporal Pulse Rate (60-100) 82 102 H Pulse Location Monitor Monitor Respiratory Rate (12-18) 18 18 Respiratory rate source Observation Observation Blood Pressure (90/60-120/80) 92/68 75/56 L Blood Pressure Mean (mm Hg) 76 62 Source Monitor Monitor Position Sitting Blood Pressure Location Left Arm History Since Last Visit- (Skip if this is Patient's initial visit) Have you changed medications since your No No last visit? Any new allergies or adverse reactions No No Had a fall/change in ADL's that may No No increase risk of falls Signs or symptoms of abuse and/or No No neglect since last visit Have you been in the hospital since your No No last visit? Has dressing in place as prescribed Yes Yes Has compression in place as prescribed No N/A Has offloadiing in place as prescribed No N/A Experienced any changes in pain level or No No management Pain Scale: 0-10 Numeric Is Patient Pain Free? Yes Yes neck -Description Sharp -Intensity 8 -Pain Behavior Restlessness -Pain Aggravating Factors Debridement -Alleviating Factors/Interventions Medication -Effectiveness of Alleviating Factor/ Minimally Intervention effective WC - Nurse 1 - General Ulcer Measurement Start: 04/04/22 11:51 Freq: Status: Active Protocol: Activity Type Activity Date Activity User E-sign Co-sign Detail Recorded Client Recorded Date Recorded By Document 04/04/22 11:51 RB [id number] 04/04/22 11:53 RB Document 04/11/22 11:24 DL [id number] 04/11/22 11:32 DL 04/04/22 04/11/22 11:51 11:24 Wound Center Nurse 1 #1- R NECK TUMOR -Combined with other wound No -Current Size (cm) - Length 0.4 14 -Current Size (cm) - Width 0.4 5.5 -Current Size (cm) - Depth 0.2 0.1 -Total Square Cm 0.16 77.0 -Photo Taken No -Tunneling No -Undermining/Tunneling No -Circular Undermining No -Exudate Amt Medium Medium -Exudate Type Serosanguineous Yellow/Green -Wound Margin Distinct, Indistinct, Non Outline -Visible Attached -Granulation Amt Medium (34-66%) Large (67-100%) -Granulation Quality [place] -Slough/Fibrin Yes -Necrosis Amt Medium (34-66%) Medium (34-66%) -Necrotic Tissue Type Adherent Slough Adherent Slough -Structure Exposed N/A N/A -Texture (Chery-wound Skin Appearance) Assessed, Scarring Excoriation -Moisture (Chery-wound Skin Appearance) Weeping Weeping -Color (Chery-wound Skin Appearance) Assessed No Abnormality -Temperature (Chery-wound Skin No Abnormality No Abnormality Appearance) (Pt Warm) (Pt Warm) -Tenderness on Palpation (Chery-wound No No Skin Appearance) -Ulcer Cleansing Wound Cleanser Rinsed/ Irrigated with Saline -Foul Odor after Cleansing No No -Anesthetic Used 4% Lidocaine 5% Lidocaine Solution Gel - Nurse 2 - General Ulcer CM Notes Start: 04/04/22 11:51 Freq: Status: Active Protocol: Activity Type Activity Date Activity User E-sign Co-sign Detail Recorded Client Recorded Date Recorded By Document 04/04/22 12:03 [id number] 04/04/22 12:26 Document 04/11/22 11:45 [id number] 04/11/22 11:53 04/04/22 04/11/22 12:03 11:45 Wound Center Nurse 2 #1- R NECK TUMOR -Time 12:21 11:45 -Correct Patient Yes Yes -Correct Side, Site, Position Yes Yes -Correct Procedure Yes Yes -Procedure Performed Yes Yes -Type of Procedure Debridement Debridement -Clinical Debridement Subcutaneous Subcutaneous -Tissue Removed Subcutaneous Subcutaneous -Post Debridement (cm) - Length 5.5 14 -Post Debridement (cm) - Width 14 5 -Post Debridement (cm) - Depth 0.7 0.2 -Total Square (Post) (cm) 77.0 70 -Area of Debridement (cm) - Length 5.5 14 -Area of Debridement (cm) - Width 14 5 -Total Square (Area) (cm) 77.0 70 -Tunneling No No -Undermining/Tunneling No No -Circular Undermining No No -Wound/Ulcer Outcome Not Healed Not Healed -Ulcer Cleansing Rinsed/ Rinsed/ Irrigated with Irrigated with Saline Saline -Foul Odor after Cleansing No No -Bioengineered Tissue No No -Bleeding Controlled with Pressure Pressure -Treatment Response Procedure Procedure Tolerated Well Tolerated Well -Offloading No No -Debridement - Subq, 1st 20sq cm Yes Yes -Debridement, SubQ, ea addt'l 20sq cm 3 or part thereof Pain Scale: 0-10 Numeric Is Patient Pain Free? Yes Yes - Nurse 3 - General Ulcer D/C NN Start: 04/04/22 11:51 Freq: Status: Active Protocol: Activity Type Activity Date Activity User E-sign Co-sign Detail Recorded Client Recorded Date Recorded By Document 04/04/22 12:26 [id number] 04/04/22 12:27 Document 04/11/22 11:54 [id number] 04/11/22 11:55 JF 04/04/22 04/11/22 12:26 11:54 Wound Care Nurse 3 #1- R NECK TUMOR -Ulcer Cleansing Rinsed/ Rinsed/ Irrigated with Irrigated with Saline Saline -Foul Odor after Cleansing No No -Primary Dressing Applied Other -Other Dressing silvadene cream silvadene -Primary Dressing Covered/Secured with Dry Gauze, Dry Gauze, Secured with Secured with Tape Tape Pain Scale: 0-10 Numeric Is Patient Pain Free? Yes Yes WC - Visit Discharge Discharge Condition Stable Stable Ambulatory Status Ambulatory Ambulatory Transportation Private Auto Private Auto Accompanied by Medication Reconcilliation completed & Yes Yes provided to patient/care provider Clinical Summary of Care Provided Yes Yes Assessment/Plan Assessment/Plan (1) Skin ulcer of right lateral neck with fat layer exposed: CODE(S): L98.492 - Non-pressure chronic ulcer of skin of other sites with fat layer exposed (2) Adverse effect of radiation therapy: CODE(S): T66.XXXA - Radiation sickness, unspecified, initial encounter (3) Primary cancer of supraglottis: CODE(S): C32.1 - Malignant neoplasm of supraglottis (4) Mandibular swelling: CODE(S): R22.0 - Localized swelling, mass and lump, head PLAN: Plan Patient evaluated at the wound center. Wound care - The ulcer is now a radiation burn that is very painful and is extending to his anterior neck onto his left neck.Gently wash with soap and water daily, pat dry. Cover with Silvadene cream and top with adaptic, then gauze, secure with silicone tape daily. He is not able to place the silvadene cream on himself, if he would shower and no one is able to place the silvadene cream on immediately, he should cover with adaptic to help decrease the pain from the air hitting the burn. Wound culture obtained on 02/07/22 of his right neck ulcer, which showed no growth of bacteria, but he was on Augmentin at the time of the culture after his most recent hospitalization. He completed his chemotherapy, which he receives through . He completed his radiation therapy. He is keeping his head elevated to help with the swelling of his right jaw/mandible area. That does not seem to be helping with the edema. Continue to use ANGELA wrap to help with compression, especially at night. He will not tolerate compression around his neck due to how painful his ulcer currently is. He has been measured for the lymphedema compression pumps. Encouraged good nutrition, with increased protein intake. Discussed that if he starts to experience any bleeding he needs to hold pressure and if the bleeding doesn't stop, he is to continue to hold pressure and call 911 to be transferred to the nearest ED. Both he and his verbalized understanding. Follow up two weeks. Call or come in sooner if have any concerns.
== END 2022-04-21 23:59 | disposition home or self-care (01) ==
LOC: WC 10:15
PROVIDERS: Visit Provider Nurse Practitioner Family
DX: C32.1 Malignant neoplasm of supraglottis (principal); L98.491 Non-pressure chronic ulcer of skin of other sites limited to breakdown of skin; Z92.3 Personal history of irradiation; T66.XXXA Radiation sickness, unspecified, initial encounter
CPT/HCPCS: 11042; 11045

== ENCOUNTER 2022-04-24 09:30 | Outpatient (RCR) | payer BC, MEDICAID, SELFPAY ==
--- NOTE | 2022-02-20 12:12 | HP.SP.EV_ITS ---
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 He received induction chemotherapy (completed Dec 2021) and had a very nice response to treatment, s/p PET scan 01/20/2022. [employer] for [employer], currently on leave. He lives with his , Clair, and two children are still at home. Smoking Status: Current every day smoker Hx Tobacco Use: Yes - Pain Is pain an issue with your current prescribed condition?: Yes Patient Allergies - Allergies Allergies No Known Allergies Allergy (Verified 02/08/22 11:22) Subjective Dysphagia - Symptoms Reported Other: Increased difficulty chewing - Current Diet Solids Current Diet: Regular Other: meats chopped - Current Diet Liquids Current Liquids: Thin - NPO NPO - Alternative Nutrition Method: Gastrostomy Tube Objective Dysphagia - Administered by Administered by: Self - Thin Liquids Administred via: Cup, Straw Oral Transit: WNL Bolus clearance: fully cleared Cough: none observed/unable to assess Pharyngeal phase: immediate laryngeal elevation - Pureed Administered via: Spoon Oral Preparation: WNL Oral Transit: WNL Cough: none observed/unable to assess Pharyngeal phase: immediate laryngeal elevation - Regular Oral Preparation: WNL Oral Transit: WNL Bolus clearance: significant clearance/minimal residue Cough: none observed/unable to assess Pharyngeal phase: immediate laryngeal elevation Comments: prolonged but adequate mastication, no overt s/s of aspiration, mild oral residue on roof of mouth requiring liquid wash to clear - Recommendations Modified Barium Swallow/Cookie Swallow Recommended: Yes Swallowing Treatment: Yes - Diet Texture Recommendations Solids: Regular (Level 7) Liquids: Thin (Level 0) - Safety Saftey Precautions/Swallowing Recommendations (Check all that Apply): Upright Position at Least 30 Minutes After Meals, Small Sips & Bites when Eating, Alternate Liquids & Solids - Results Swallowing Within Normal Limits: Yes Objective Oral Motor - Oral Status Dentition: Missing Teeth Additional: teeth pulled prior to treatment - Jaw Opening Measurement: 41mm - Respiratory Status 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 - V Trigeminal Nerve V Trigeminal Nerve Response: Intact - VII Facial Nerve VII Facial Nerve Result: Impaired Comment: impaired taste - mild dysgeusia - X Vagus Nerve X Vagus Nerve Result: Intact - XII Hypoglossal Nerve XII Hypoglossal Nerve Result: Intact Swallowing Performance Scale - Swallowing Performance Scale Swallowing Performance Scale Result: 2 Within Functional Limit FOIS - Functional Oral Intake Scale Total oral diet with multiple consistencies, but requiring special preparation or compensations: Level 5 Plan - Plan Plan: While the patient is demonstrating overall swallow function WFL at this time, will recommend dysphagia therapy to implement prophylactic oropharyngeal exercise program during chemoradiation and to provide ongoing assessment of swallow function and diet tolerance during treatment. The patient is at increased risk for dysphagia, aspiration, malnutrition, and dehydration during chemoradiation treatment to treat his primary cancer of the supraglottis. Will plan to obtain MBSS to determine the patient's baseline swallow function. He will be planned for repeat MBSS 3 months s/p chemoradiation, followed by at least yearly MBSS in the first 5 years following radiation, as the patient's swallow is at risk to worsen due to long-term effects of chemoradiation. - Recommendations MBS: Yes Treatment Warranted: Yes Treatment Warranted: Dysphagia - Progress Prognosis: Good - Frequency Frequency: Every Other Week Additional (Frequency): Frequency to vary during POC based on pt's needs during and following radiation treatment. Duration: 12 Months - Goals that are Established Determination:: Goals will be added/modified as deemed necessary and appropriate. Therapy will be discontinued when results of re-evaluation indicate therapy is no longer needed or lack of progress has been documented. - Goal #1-5 Goal #1: The patient will consume least restrictive diet textures without overt s/s of aspiration with minimal verbal cues to decrease risk for aspiration. Goal #2: The patient will complete an oropharyngeal exercise program during and post radiation treatment independently to improve and maintain strength, ROM, and coordination of swallowing mechanism (X10 repetitions, 3-5X daily). Goal #3: The patient will participate in ongoing education re: short-term and long-term effects of chemoradiation treatment on swallow function and management of symptoms that contribute to dysphagia. Goal #4: The patient will participate in MBS study to objectively assess swallow function and provide recommendations for safest, least restrictive diet and compensatory strategies to reduce risk for aspiration. Education - Patient Instruction Patient Education: Diagnosis, Treatment Plan, Home Exercise Program Other Education: Education provided regarding the potential impacts of radiation treatment on swallow function during and post treatment, including effects such as mucositis, dysgeusia, radiation fibrosis, lymphedema, and disuse atrophy which may result in restricted range of motion and weakness of swallowing mechanism. Discussed impaired swallowing and increased risk for aspiration, aspiration related illnesses, weight loss, and malnutrition. Discussed importance for speech therapy to monitor and address dysphagia during and post radiation treatment to maintain optimal swallow function through continued education and prophylactic exercise program. Provided the patient a handout and demonstration of prophylactic oropharyngeal exercise program, as well as a jaw ROM exercise. The patient provided return demonstration with all exercises with min-mod verbal cues and demonstration. The patient would benefit from continued training to monitor proper execution of exercises and encourage strict adherence to exercise program. Person Taught: Patient, Family Teaching Method: Discussion, Demonstration, Handout, Teach back Response to teaching: Return demonstration, Verbalize understanding, Reinforcement needed
--- NOTE | 2023-03-19 11:21 | HP.SP.DC_ITS ---
ST Discharge Summary Discharged: Discharge: The patient was seen by ST for OP dysphagia evaluation (02/20/2022), MBSS (02/27/2022), and 3 follow-up visits (03/14/2022-04/24/2022) due to malignant neoplasm of the supraglottis s/p induction chemo and radiation treatment. Care was unfortunately suspended due to financial reasons and insurance not covering care at [facility]. Will discharge the patient from at this time. If change to insurance, please re-consult for follow-up ST as the patient is at risk for worsening dysphagia s/p radiation. He would benefit from minimum of yearly MBSS to monitor swallow function and aspiration risk for the first 5 years s/p radiation.
== END 2022-04-24 19:00 | disposition home or self-care (01) ==
LOC: SP 09:30
PROVIDERS: Referring Provider Student in an Organized Health Care Education/Training Program; Visit Provider Student in an Organized Health Care Education/Training Program
DX: C32.1 Malignant neoplasm of supraglottis (principal); Z93.1 Gastrostomy status
CPT/HCPCS: 92526; 92610; 97803

== ENCOUNTER 2022-05-09 10:30 | Outpatient (RCR) | payer BC, MEDICAID, SELFPAY ==
[2022-04-22 00:25] VITALS: BP 75/56; PULSE 102; RESP 18; TEMP 36.5; BMI 21.4
[2022-04-25 10:53] VITALS: BP 81/51; PULSE 113; RESP 16; TEMP 36.2; BMI 21.4
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
[2022-05-09 10:32] VITALS: BP 94/56; PULSE 99; RESP 18; TEMP 36.4; BMI 21.4
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
== END 2022-05-22 23:59 | disposition home or self-care (01) ==
LOC: WC 10:30
PROVIDERS: Visit Provider Nurse Practitioner Family
DX: C32.1 Malignant neoplasm of supraglottis (principal); L98.491 Non-pressure chronic ulcer of skin of other sites limited to breakdown of skin; T66.XXXA Radiation sickness, unspecified, initial encounter; T30.0 Burn of unspecified body region, unspecified degree
CPT/HCPCS: 11042; 99213; G0463

== ENCOUNTER 2022-06-25 10:12 | Outpatient (RCR) | payer BC, MEDICAID, SELFPAY | END 2022-07-20 23:59 | disposition home or self-care (01) | LOC: NS 10:12 | PROVIDERS: Visit Provider Student in an Organized Health Care Education/Training Program | DX: Z71.3 Dietary counseling and surveillance (principal); C32.1 Malignant neoplasm of supraglottis | CPT/HCPCS: 97803 ==

== ENCOUNTER → 2022-08-10 | Outpatient (CLI) | payer BC, MEDICAID, SELFPAY ==
[2022-08-10 13:49] LABS: Amphetamine Urine VISTA NEGATIVE (<1000 ng/mL); Barbiturate Urine VISTA NEGATIVE (< 200 ng/mL); Benzodiazepine Urine VISTA NEGATIVE (< 200 ng/mL); Cocaine Urine VISTA NEGATIVE (< 300 ng/mL); Ecstacy Urine VISTA NEGATIVE (< 500 ng/mL); Methadone Urine VISTA NEGATIVE (< 300 ng/mL); PCP Urine VISTA NEGATIVE (< 25 ng/mL); THC Urine VISTA NEGATIVE (< 50 ng/mL); Vista UDS pH Range 7
== END | disposition home or self-care (01) ==
PROVIDERS: Referring Provider Family Medicine; Visit Provider Family Medicine
DX: C32.1 Malignant neoplasm of supraglottis (principal); Z79.899 Other long term (current) drug therapy
CPT/HCPCS: 80307